=== PATIENT | female | born 1970 | race Caucasian/White ===

== ENCOUNTER 2019-11-06 04:29 | Emergency (ER) | payer OTHER ==
[~2019-11-06] VITALS: Ht 170.2 cm; Wt 102.5 kg
[2019-11-06 05:20] VITALS: BP 124/85
== END 2019-11-06 05:22 | disposition home or self-care (01) ==
LOC: ER 04:30
DX: Z00.00 Encounter for general adult medical examination without abnormal findings (principal); Z72.89 Other problems related to lifestyle
CPT/HCPCS: 99281

== ENCOUNTER 2021-11-06 15:14 | Inpatient (IN) | payer MEDICAID ==
[~2021-11-06] VITALS: Ht 170.2 cm; Wt 79.5 kg
[2021-11-06 16:38] LABS: BASOPHILS # (AUTO) 0.1 X10'3 (0-0.2); BASOPHILS % (AUTO) 0.7 % (0-1); EOSINOPHILS % (AUTO) 0.1 % (0-6); HEMATOCRIT 45.3 % (35.0-45.0); HEMOGLOBIN 15.8 g/dl (12.0-16.0); LYMPHOCYTES % (AUTO) 6.8 % (21-51); MEAN CORPUSCULAR HEMOGLOBIN 30.9 PG (27.0-31.0); MEAN CORPUSCULAR HGB CONC 34.9 g/dL (33.0-36.5); MEAN CORPUSCULAR VOLUME 88.5 FL (78-98); MEAN PLATELET VOLUME 8.9 FL (7.4-10.4); MONOCYTES # (AUTO) 0.9 X10'3 (0-0.9); MONOCYTES % (AUTO) 6.4 % (2-12); NEUTROPHILS # (AUTO) 12.2 X10'3 (1.8-7.7); PLATELET COUNT 464 X10'3 (140-440); RED BLOOD COUNT 5.12 X10'6 (4.20-5.60); RED CELL DISTRIBUTION WIDTH 13.8 % (11.5-14.5); WHITE BLOOD COUNT 14.1 X10'3 (4.5-11.0)
[2021-11-06 16:45] LABS: ALANINE AMINOTRANSFERASE 75 U/L (12-78); ALBUMIN 2.1 G/DL (3.4-5.0); ALBUMIN/GLOBULIN RATIO 0.3 (1.1-1.5); ALKALINE PHOSPHATASE 145 IU/L (46-116); ANION GAP 12 (8-16); ASPARTATE AMINO TRANSFERASE 38 U/L (10-37); BILIRUBIN,TOTAL 0.9 MG/DL (0.1-1.0); BLOOD UREA NITROGEN 12 MG/DL (7-18); BUN/CREATININE RATIO 13.3 (6.6-38.0); CALCIUM 8.9 MG/DL (8.5-10.1); CHLORIDE 98 MMOL/L (99-107); GLUCOSE 158 MG/DL (70-104); POTASSIUM 3.5 MMOL/L (3.5-5.1); SODIUM 135 MMOL/L (135-145); TOTAL CARBON DIOXIDE 25.2 MMOL/L (24-32); TOTAL PROTEIN 8.6 G/DL (6.4-8.2); eGFR 65 ML/MIN
[2021-11-06] MEDS ORDERED: morphine 4 MG/ML inj SYRINge IV ONE ×2 (16:50→18:15)
[2021-11-06] MEDS ORDERED: normal saline 1000ML IV soln IVB ONE (16:50)
[2021-11-06] MEDS ORDERED: ondansetron/PF 4mg/2ml inj IV ONE (16:50)
[2021-11-06] MEDS ORDERED: cefTRIAXone 1g/NS 100ml IVPB 100 ML IV ONE (16:50)
[2021-11-06] MEDS ORDERED: vancomycin/NS 1 GM ADD-VANTAGE 250 ML X 1 DOSE IV ONE ×2 (16:55→18:00)
[2021-11-06] MEDS ORDERED: DOXYCYCLINE 100 MG in NORMAL SALINE 100ml IV.SOLN IV ONE (17:15)
[2021-11-06] MEDS: fluconazole 100mg tablet PO SCH (17:45)
[2021-11-06] MEDS ORDERED: acetaminophen 325mg tablet PO PRN (17:45)
[2021-11-06] MEDS ORDERED: HYDROcodone/acetaminophen 5mg/325mg tablet PO PRN (17:45)
[2021-11-06] MEDS ORDERED: magnesium Cl slow-release 64mg tablet PO PRN (17:45)
[2021-11-06] MEDS ORDERED: magnesium 2GM in 50ml NS 50 ML IV PRN (17:45)
[2021-11-06] MEDS ORDERED: potassium CL 10mEq/100ml bag 100 ML IV PRN (17:45)
[2021-11-06] MEDS ORDERED: ondansetron/PF 4mg/2ml inj IV PRN (17:45)
[2021-11-06] MEDS ORDERED: magnesium 4gm in 100ml NS 100 ML IV PRN (17:45)
[2021-11-06] MEDS: potassium Cl 20mEq in NS 1,000 ML IV SCH (17:45)
[2021-11-06] MEDS ORDERED: potassium Cl 20 mEq SR tablet PO PRN ×2 (17:45)
[2021-11-06] MEDS ORDERED: mag hydrox/Alum hydrox/simeth 30ml oral suspension PO PRN (17:45)
[2021-11-06] MEDS ORDERED: morphine 2 MG/ML inj. syringe IV PRN (17:45)
[2021-11-06 18:33] LABS: MAGNESIUM 1.3 MG/DL (1.5-2.4); POTASSIUM 3.1 MMOL/L (3.5-5.1)
[2021-11-06] MEDS ORDERED: IBUP-1986 PO (19:07)
[2021-11-06] MEDS ORDERED: ALBU17AE26 IH (19:07)
--- NOTE | 2021-11-06 19:30 | NUR ---
ATTEMPTED WOUND CARE TO BILAT BREAST AND ABD WOUNDS, PT IN PAIN 10 OUT OF 10. SALINE SOAKED GAUZE PLACED ON OPEN AREAS, MAGGOTS SEEN CRAWLING UNDER PT RIGHT BREAST.
[2021-11-06] MEDS: docusate sod 100mg capsule PO SCH (20:00)
[2021-11-06] MEDS: HYDROcodone/acetaminophen 10/325mg tab PO PRN (21:23)
[2021-11-06] MEDS: diphenhydrAMINE 25mg capsule PO PRN (21:23)
[2021-11-06] MEDS: K and/or MAG REPLACEMENT MC SCH (21:32)
[2021-11-06] MEDS: morphine 2 MG/ML inj. syringe IV PRN (22:57)
--- NOTE | 2021-11-06 22:59 | NUR ---
PT WAS SHOWERED IN THE DECON ROOM, SOME MAGGOTS REMOVED
--- NOTE | 2021-11-06 23:04 | NUR ---
pt refuses cath UA, states will provide urine when she gets upstairs
[2021-11-06 23:30] VITALS: BP 114/84
--- NOTE | 2021-11-06 23:30 | NUR ---
RECEIVED PT FROM ER VIA [facility] FOLLOWING VERBAL REPORT FROM ROBSON.
[2021-11-07] MEDS: potassium Cl 20mEq in NS 1,000 ML IV SCH ×3 (00:56→22:55)
[2021-11-07 01:07] LABS: URINE AMPHETAMINE SCREEN POSITIVE (Neg); URINE BARBITUATE SCREEN NEGATIVE (Neg); URINE BENZODIAZEPINES SCREEN NEGATIVE (Neg); URINE CANNABINOID SCREEN NEGATIVE (Neg); URINE COCAINE SCREEN NEGATIVE (Neg); URINE METHADONE SCREEN NEGATIVE (Neg); URINE OPIATE SCREEN POSITIVE (Neg); URINE PHENCYCLIDINE SCREEN NEGATIVE (Neg)
[2021-11-07] MEDS: HYDROcodone/acetaminophen 10/325mg tab PO PRN ×4 (01:23→21:36)
[2021-11-07 01:37] LABS: CLARITY,URINE CLEAR (Clear); GLUCOSE, URINE NEGATIVE (Neg); KETONES,URINE NEGATIVE (Neg); LEUKOCYTE ESTERASE ,URINE NEGATIVE (Neg); NITRITES, URINE NEGATIVE (Neg); OCCULT BLOOD,URINE NEGATIVE (Neg); PH,URINE 6.5 (4.8-8.0); PROTEIN,URINE NEGATIVE (Neg); UROBILINOGEN,URINE >=8.0 E.U/dL (0.2-1.0)
[2021-11-07 01:54] LABS: COLOR,URINE AMBER (Yellow); UA COLLECTION TYPE VOIDED
[2021-11-07] MEDS ORDERED: VANCOMYCIN LEVEL IV ONE (03:30)
[2021-11-07] MEDS: vancomycin/NS 1 GM ADD-VANTAGE 250 ML IV SCH ×2 (03:53→16:24)
[2021-11-07 06:00] VITALS: BP 103/65
--- NOTE | 2021-11-07 06:37 | NUR ---
Problems reprioritized. Patient report given, questions answered & plan of care reviewed with MELISSA.
--- NOTE | 2021-11-07 06:45 | NUR ---
Patient in room ORTHO 4016. I have received report from SARAH NICOLE and had the opportunity to ask questions and assume patient care.
[2021-11-07 07:00] LABS: BASOPHILS # (AUTO) 0.1 X10'3 (0-0.2); BASOPHILS % (AUTO) 0.6 % (0-1); EOSINOPHILS # (AUTO) 0.1 X10'3 (0-0.9); EOSINOPHILS % (AUTO) 1.4 % (0-6); HEMATOCRIT 36.7 % (35.0-45.0); HEMOGLOBIN 12.3 g/dl (12.0-16.0); LYMPHOCYTES # (AUTO) 1.5 X10'3 (1.1-4.8); LYMPHOCYTES % (AUTO) 16.6 % (21-51); MEAN CORPUSCULAR HEMOGLOBIN 29.7 PG (27.0-31.0); MEAN CORPUSCULAR HGB CONC 33.4 g/dL (33.0-36.5); MEAN CORPUSCULAR VOLUME 88.9 FL (78-98); MEAN PLATELET VOLUME 8.6 FL (7.4-10.4); MONOCYTES % (AUTO) 11.3 % (2-12); NEUTROPHILS # (AUTO) 6.2 X10'3 (1.8-7.7); NEUTROPHILS % (AUTO) 70.1 % (42-75); PLATELET COUNT 309 X10'3 (140-440); RED BLOOD COUNT 4.13 X10'6 (4.20-5.60); RED CELL DISTRIBUTION WIDTH 13.9 % (11.5-14.5); WHITE BLOOD COUNT 8.9 X10'3 (4.5-11.0)
[2021-11-07 07:32] LABS: ALANINE AMINOTRANSFERASE 51 U/L (12-78); ALBUMIN 1.4 G/DL (3.4-5.0); ALBUMIN/GLOBULIN RATIO 0.3 (1.1-1.5); ALKALINE PHOSPHATASE 98 IU/L (46-116); ANION GAP 7 (8-16); ASPARTATE AMINO TRANSFERASE 29 U/L (10-37); BILIRUBIN,TOTAL 0.4 MG/DL (0.1-1.0); BLOOD UREA NITROGEN 11 MG/DL (7-18); BUN/CREATININE RATIO 16.2 (6.6-38.0); CALCIUM 7.6 MG/DL (8.5-10.1); CHLORIDE 109 MMOL/L (99-107); CREATININE 0.68 MG/DL (0.40-0.90); GLUCOSE 110 MG/DL (70-104); MAGNESIUM 1.8 MG/DL (1.5-2.4); POTASSIUM 3.9 MMOL/L (3.5-5.1); SODIUM 141 MMOL/L (135-145); TOTAL CARBON DIOXIDE 24.9 MMOL/L (24-32); TOTAL PROTEIN 5.9 G/DL (6.4-8.2); eGFR > 90 ML/MIN
[2021-11-07] MEDS ORDERED: doxycycline inj 100 MG in normal saline 100ml IV soln 100 ML IV SCH (08:00)
[2021-11-07] MEDS: docusate sod 100mg capsule PO SCH ×2 (08:00→21:36)
[2021-11-07] MEDS: K and/or MAG REPLACEMENT MC SCH ×2 (08:00→20:00)
[2021-11-07 10:00] VITALS: BP 145/82
[2021-11-07] MEDS ORDERED: pneumococcal 23-VAL P-sac vacc 25 mcg/0.5ml vial IMVAC ONE (10:00)
[2021-11-07] MEDS: fluconazole 100mg tablet PO SCH (10:07)
[2021-11-07] MEDS: enoxaparin 40mg/0.4ml syringe SUBCUT SCH (10:09)
[2021-11-07] MEDS: DOXYCYCLINE 100MG CAPSULE PO SCH ×2 (11:39→19:04)
--- NOTE | 2021-11-07 11:56 | NUR ---
Met with patient in regards to substance use and to see if patient wanted resources for treatment options. Patient would like to go to an inpatient rehab. I gave patient [facility] number to call and start process. I will follow up with patient.
[2021-11-07 14:00] VITALS: BP 121/82
--- NOTE | 2021-11-07 18:20 | NUR ---
Problems reprioritized. Patient report given, questions answered & plan of care reviewed with SARAH NICOLE.
--- NOTE | 2021-11-07 18:30 | NUR ---
Patient in room [facility]THO 4016. I have received report from MELISSA and had the opportunity to ask questions and assume patient care.
[2021-11-07 19:00] VITALS: BP 136/84
[2021-11-07] MEDS: morphine 2 MG/ML inj. syringe IV PRN ×2 (19:05→23:23)
[2021-11-07] MEDS: magnesium hydroxide 30ml (MOM) UD suspension PO PRN (21:36)
[2021-11-07 22:00] VITALS: BP 128/74
[2021-11-08 02:00] VITALS: BP 105/70
[2021-11-08] MEDS ORDERED: VANCOMYCIN LEVEL IV ONE (03:30)
[2021-11-08] MEDS: HYDROcodone/acetaminophen 10/325mg tab PO PRN ×3 (03:38→17:25)
[2021-11-08] MEDS: vancomycin/NS 1 GM ADD-VANTAGE 250 ML IV SCH (03:38)
[2021-11-08 03:48] LABS: EOSINOPHILS # (AUTO) 0.1 X10'3 (0-0.9); LYMPHOCYTES # (AUTO) 1.8 X10'3 (1.1-4.8); MONOCYTES # (AUTO) 0.6 X10'3 (0-0.9); RED CELL DISTRIBUTION WIDTH 14.1 % (11.5-14.5)
[2021-11-08 03:50] LABS: BASOPHILS # (AUTO) 0.1 X10'3 (0-0.2); BASOPHILS % (AUTO) 1.1 % (0-1); EOSINOPHILS % (AUTO) 1.5 % (0-6); HEMATOCRIT 39.1 % (35.0-45.0); LYMPHOCYTES % (AUTO) 26.4 % (21-51); MEAN CORPUSCULAR HEMOGLOBIN 30.2 PG (27.0-31.0); MEAN CORPUSCULAR HGB CONC 33.3 g/dL (33.0-36.5); MEAN CORPUSCULAR VOLUME 90.6 FL (78-98); MEAN PLATELET VOLUME 8.4 FL (7.4-10.4); MONOCYTES % (AUTO) 8.4 % (2-12); NEUTROPHILS # (AUTO) 4.3 X10'3 (1.8-7.7); NEUTROPHILS % (AUTO) 62.6 % (42-75); PLATELET COUNT 329 X10'3 (140-440); RED BLOOD COUNT 4.32 X10'6 (4.20-5.60); WHITE BLOOD COUNT 6.8 X10'3 (4.5-11.0)
[2021-11-08 03:57] LABS: ALANINE AMINOTRANSFERASE 47 U/L (12-78); ALBUMIN 1.4 G/DL (3.4-5.0); ALBUMIN/GLOBULIN RATIO 0.3 (1.1-1.5); ALKALINE PHOSPHATASE 84 IU/L (46-116); ANION GAP 5 (8-16); ASPARTATE AMINO TRANSFERASE 27 U/L (10-37); BILIRUBIN,TOTAL 0.2 MG/DL (0.1-1.0); BLOOD UREA NITROGEN 9 MG/DL (7-18); BUN/CREATININE RATIO 11.7 (6.6-38.0); CALCIUM 7.7 MG/DL (8.5-10.1); CHLORIDE 110 MMOL/L (99-107); CREATININE 0.77 MG/DL (0.40-0.90); GLUCOSE 124 MG/DL (70-104); MAGNESIUM 1.9 MG/DL (1.5-2.4); POTASSIUM 4.6 MMOL/L (3.5-5.1); SODIUM 144 MMOL/L (135-145); TOTAL CARBON DIOXIDE 29.3 MMOL/L (24-32); TOTAL PROTEIN 6.2 G/DL (6.4-8.2); VANCOMYCIN,TROUGH 6.5 UG/ML (6.0-14.0); eGFR 78 ML/MIN
[2021-11-08 06:30] VITALS: BP 129/60
[2021-11-08] MEDS: K and/or MAG REPLACEMENT MC SCH ×2 (08:00→20:00)
[2021-11-08] MEDS: docusate sod 100mg capsule PO SCH ×2 (09:24→21:53)
[2021-11-08] MEDS: DOXYCYCLINE 100MG CAPSULE PO SCH (09:24)
[2021-11-08] MEDS: fluconazole 100mg tablet PO SCH (09:25)
[2021-11-08] MEDS: enoxaparin 40mg/0.4ml syringe SUBCUT SCH (09:25)
[2021-11-08 10:00] VITALS: BP 135/85
[2021-11-08] MEDS ORDERED: pneumococcal 23-VAL P-sac vacc 25 mcg/0.5ml vial IMVAC ONE (10:00)
[2021-11-08] MEDS: potassium Cl 20mEq in NS 1,000 ML IV SCH ×3 (10:58→22:27)
--- NOTE | 2021-11-08 13:12 | NUR ---
Initial: Pt admit for sepsis secondary to cellulitis of abdominal wall and bilat breast with maggots, wound care following. Pt on a regular diet and eating well, documented with 100% PO intake throughout LOS meeting estimated nutrient needs. LBM 11/03 though no GI symptoms per EMR. Pt receiving routine bowel care and received first dose of PRN bowel care 11/07. D/w dietary to send prunes and prune juice with next meal to assist with bowel regularity. Will continue to follow and monitor need for additional nutrition intervention. Recommendations: 1) Continue regular diet 2) Monitor need for additional protein 3) Routine bowel care; utilize PRN bowel care 4) Scaled weight this admit; subsequent weekly scaled weights Addendum: 11/08/21 at [address] Amended: Links added.
[2021-11-08] MEDS: morphine 2 MG/ML inj. syringe IV PRN (13:31)
--- NOTE | 2021-11-08 15:36 | NUR ---
Student documentation: I have reviewed and agree with all interventions, assessments performed and documented by JOVANY Kim Brakeshoe Repairer. Addendum: 11/08/21 at 1537 by Amrita Lara SS Amended: Links added.
[2021-11-08] MEDS: VANCOmycin 1250MG/NS 250ml Bag 250 ML IV SCH (16:38)
[2021-11-08 18:00] VITALS: BP 146/93
--- NOTE | 2021-11-08 18:20 | NUR ---
Patient in room ORTHO 4016. I have received report from Vanessa SMITH and had the opportunity to ask questions and assume patient care.
--- NOTE | 2021-11-08 18:33 | NUR ---
Problems reprioritized. Patient report given, questions answered & plan of care reviewed with ADRIAN SMITH.
[2021-11-08 22:00] VITALS: BP 139/85
--- NOTE | 2021-11-08 23:06 | NUR ---
I have reviewed nursing students assessment and agree with all findings.
[2021-11-09] VITALS (7 sets, daily range): BP systolic 131–154; BP diastolic 77–88
--- NOTE | 2021-11-09 02:38 | NUR ---
Student documentation: I have reviewed interventions, assessments performed and documented by Cheo HINES [facility].
[2021-11-09] MEDS: VANCOmycin 1250MG/NS 250ml Bag 250 ML IV SCH ×2 (04:07→17:43)
[2021-11-09] MEDS: HYDROcodone/acetaminophen 10/325mg tab PO PRN ×4 (04:08→21:54)
[2021-11-09] MEDS: LORazepam 0.5 MG tablet PO PRN (04:08)
[2021-11-09 06:39] LABS: BASOPHILS # (AUTO) 0.1 X10'3 (0-0.2); BASOPHILS % (AUTO) 1.2 % (0-1); EOSINOPHILS # (AUTO) 0.1 X10'3 (0-0.9); EOSINOPHILS % (AUTO) 1.3 % (0-6); HEMATOCRIT 38.5 % (35.0-45.0); LYMPHOCYTES # (AUTO) 1.6 X10'3 (1.1-4.8); LYMPHOCYTES % (AUTO) 21.8 % (21-51); MEAN CORPUSCULAR HEMOGLOBIN 30.3 PG (27.0-31.0); MEAN CORPUSCULAR HGB CONC 33.8 g/dL (33.0-36.5); MEAN CORPUSCULAR VOLUME 89.7 FL (78-98); MEAN PLATELET VOLUME 8.2 FL (7.4-10.4); MONOCYTES # (AUTO) 0.5 X10'3 (0-0.9); MONOCYTES % (AUTO) 6.3 % (2-12); NEUTROPHILS # (AUTO) 5.1 X10'3 (1.8-7.7); NEUTROPHILS % (AUTO) 69.4 % (42-75); PLATELET COUNT 349 X10'3 (140-440); RED CELL DISTRIBUTION WIDTH 13.9 % (11.5-14.5); WHITE BLOOD COUNT 7.4 X10'3 (4.5-11.0)
--- NOTE | 2021-11-09 06:45 | NUR ---
Problems reprioritized. Patient report given, questions answered & plan of care reviewed with Vanessa SMITH.
[2021-11-09 07:09] LABS: ALANINE AMINOTRANSFERASE 40 U/L (12-78); ALBUMIN 1.4 G/DL (3.4-5.0); ALBUMIN/GLOBULIN RATIO 0.3 (1.1-1.5); ALKALINE PHOSPHATASE 87 IU/L (46-116); ANION GAP 9 (8-16); ASPARTATE AMINO TRANSFERASE 26 U/L (10-37); BILIRUBIN,TOTAL 0.3 MG/DL (0.1-1.0); BLOOD UREA NITROGEN 7 MG/DL (7-18); BUN/CREATININE RATIO 10.4 (6.6-38.0); CALCIUM 8.2 MG/DL (8.5-10.1); CHLORIDE 106 MMOL/L (99-107); CREATININE 0.67 MG/DL (0.40-0.90); GLUCOSE 139 MG/DL (70-104); MAGNESIUM 1.8 MG/DL (1.5-2.4); POTASSIUM 4.1 MMOL/L (3.5-5.1); SODIUM 140 MMOL/L (135-145); TOTAL CARBON DIOXIDE 25.4 MMOL/L (24-32); TOTAL PROTEIN 6.4 G/DL (6.4-8.2); eGFR > 90 ML/MIN
[2021-11-09] MEDS: K and/or MAG REPLACEMENT MC SCH ×2 (08:00→20:00)
[2021-11-09] MEDS: docusate sod 100mg capsule PO SCH ×2 (09:21→19:26)
[2021-11-09] MEDS: fluconazole 100mg tablet PO SCH (09:22)
[2021-11-09] MEDS: enoxaparin 40mg/0.4ml syringe SUBCUT SCH (09:25)
[2021-11-09] MEDS: morphine 2 MG/ML inj. syringe IV PRN (13:06)
[2021-11-09] MEDS: potassium Cl 20mEq in NS 1,000 ML IV SCH (17:43)
--- NOTE | 2021-11-09 18:28 | NUR ---
Problems reprioritized. Patient report given, questions answered & plan of care reviewed with jo-ann white.
[2021-11-10] VITALS (7 sets, daily range): BP systolic 109–151; BP diastolic 74–101
[2021-11-10] MEDS ORDERED: VANCOMYCIN LEVEL IV ONE (03:30)
[2021-11-10 03:40] LABS: BASOPHILS # (AUTO) 0.1 X10'3 (0-0.2); BASOPHILS % (AUTO) 1.4 % (0-1); EOSINOPHILS # (AUTO) 0.1 X10'3 (0-0.9); EOSINOPHILS % (AUTO) 1.7 % (0-6); HEMATOCRIT 39.2 % (35.0-45.0); HEMOGLOBIN 13.4 g/dl (12.0-16.0); LYMPHOCYTES # (AUTO) 2.3 X10'3 (1.1-4.8); LYMPHOCYTES % (AUTO) 34.8 % (21-51); MEAN CORPUSCULAR HEMOGLOBIN 30.2 PG (27.0-31.0); MEAN CORPUSCULAR HGB CONC 34.1 g/dL (33.0-36.5); MEAN CORPUSCULAR VOLUME 88.4 FL (78-98); MEAN PLATELET VOLUME 7.9 FL (7.4-10.4); MONOCYTES # (AUTO) 0.6 X10'3 (0-0.9); NEUTROPHILS # (AUTO) 3.5 X10'3 (1.8-7.7); NEUTROPHILS % (AUTO) 53.1 % (42-75); PLATELET COUNT 378 X10'3 (140-440); RED BLOOD COUNT 4.44 X10'6 (4.20-5.60); RED CELL DISTRIBUTION WIDTH 13.8 % (11.5-14.5); WHITE BLOOD COUNT 6.6 X10'3 (4.5-11.0)
[2021-11-10] MEDS: HYDROcodone/acetaminophen 10/325mg tab PO PRN ×4 (03:40→21:47)
[2021-11-10] MEDS: VANCOmycin 1250MG/NS 250ml Bag 250 ML IV SCH ×2 (03:40→16:53)
[2021-11-10 03:52] LABS: ALANINE AMINOTRANSFERASE 44 U/L (12-78); ALBUMIN 1.6 G/DL (3.4-5.0); ALBUMIN/GLOBULIN RATIO 0.3 (1.1-1.5); ALKALINE PHOSPHATASE 101 IU/L (46-116); ANION GAP 4 (8-16); ASPARTATE AMINO TRANSFERASE 27 U/L (10-37); BILIRUBIN,TOTAL 0.2 MG/DL (0.1-1.0); BLOOD UREA NITROGEN 7 MG/DL (7-18); BUN/CREATININE RATIO 9.9 (6.6-38.0); CHLORIDE 106 MMOL/L (99-107); CREATININE 0.71 MG/DL (0.40-0.90); GLUCOSE 141 MG/DL (70-104); MAGNESIUM 1.8 MG/DL (1.5-2.4); POTASSIUM 4.3 MMOL/L (3.5-5.1); SODIUM 139 MMOL/L (135-145); TOTAL PROTEIN 6.6 G/DL (6.4-8.2); VANCOMYCIN,TROUGH 14.3 UG/ML (6.0-14.0); eGFR 86 ML/MIN
[2021-11-10] MEDS: potassium Cl 20mEq in NS 1,000 ML IV SCH ×3 (04:47→21:50)
--- NOTE | 2021-11-10 06:19 | NUR ---
Problems reprioritized. Patient report given, questions answered & plan of care reviewed with SARAH NEWELL.
--- NOTE | 2021-11-10 06:48 | NUR ---
Patient in room [facility]THO 4016. I have received report from SARAH Metzger and had the opportunity to ask questions and assume patient care.
[2021-11-10] MEDS: K and/or MAG REPLACEMENT MC SCH ×2 (08:00→19:28)
[2021-11-10] MEDS: fluconazole 100mg tablet PO SCH (09:00)
[2021-11-10] MEDS: docusate sod 100mg capsule PO SCH ×2 (09:00→19:30)
[2021-11-10] MEDS: enoxaparin 40mg/0.4ml syringe SUBCUT SCH (09:01)
--- NOTE | 2021-11-10 10:15 | NUR ---
Spoke with wound care nurse. She will be doing the wound care and taking picture of the wounds today.
[2021-11-10] MEDS: morphine 2 MG/ML inj. syringe IV PRN (12:54)
--- NOTE | 2021-11-10 15:54 | NUR ---
Arrived on unit to change dressing and take photos of wounds for MD to review in chart. Pt tolerated dressing change well and assisted in removal of xeroform w/ gloved hands. The wound edges to the right breast and abd are with noted melissa red border and the wound base is noted to be boggy and w/ necrotic tissue. The left breast wound also w/ boggy wound base and large slough. Redressed per orders, she tolerated well w/ pre medication. Report to Dr Devlin and Dr Saravia, also call to Dr Torres to evaluate possible etiologies of wounds. Report to primary nurse. Addendum: 11/10/21 at 1602 by Georgina Sinha RN Amended: Links added.
--- NOTE | 2021-11-10 18:30 | NUR ---
Patient in room ORTHO 4016. I have received report from SARAH Coleman and had the opportunity to ask questions and assume patient care.
--- NOTE | 2021-11-10 19:09 | NUR ---
Problems reprioritized. Patient report given, questions answered & plan of care reviewed with SARAH Valenzuela.
[2021-11-11] MEDS: VANCOmycin 1250MG/NS 250ml Bag 250 ML IV SCH (03:50)
[2021-11-11] MEDS: morphine 2 MG/ML inj. syringe IV PRN ×2 (03:51→15:08)
[2021-11-11 06:00] VITALS: BP 141/88
--- NOTE | 2021-11-11 06:34 | NUR ---
Patient in room ORTHO 4016. I have received report from SARAH Valenzuela and had the opportunity to ask questions and assume patient care.
--- NOTE | 2021-11-11 06:56 | NUR ---
Problems reprioritized. Patient report given, questions answered & plan of care reviewed with SARAH Coleman.
[2021-11-11 07:23] LABS: BASOPHILS # (AUTO) 0.1 X10'3 (0-0.2); BASOPHILS % (AUTO) 1.3 % (0-1); EOSINOPHILS # (AUTO) 0.1 X10'3 (0-0.9); EOSINOPHILS % (AUTO) 1.5 % (0-6); HEMATOCRIT 45.8 % (35.0-45.0); HEMOGLOBIN 15.4 g/dl (12.0-16.0); LYMPHOCYTES # (AUTO) 2.3 X10'3 (1.1-4.8); LYMPHOCYTES % (AUTO) 29.2 % (21-51); MEAN CORPUSCULAR HEMOGLOBIN 30.3 PG (27.0-31.0); MEAN CORPUSCULAR HGB CONC 33.5 g/dL (33.0-36.5); MEAN CORPUSCULAR VOLUME 90.5 FL (78-98); MEAN PLATELET VOLUME 7.9 FL (7.4-10.4); MONOCYTES # (AUTO) 0.4 X10'3 (0-0.9); MONOCYTES % (AUTO) 5.2 % (2-12); NEUTROPHILS % (AUTO) 62.8 % (42-75); PLATELET COUNT 473 X10'3 (140-440); RED BLOOD COUNT 5.06 X10'6 (4.20-5.60); RED CELL DISTRIBUTION WIDTH 14.1 % (11.5-14.5); WHITE BLOOD COUNT 7.9 X10'3 (4.5-11.0)
--- NOTE | 2021-11-11 07:28 | NUR ---
Notified DR. Devlin that wound care nurse Georgina is concerned that the patient may have pyoderma gangrenosum. Per Dr. Devlin cancel the surgery scheduled for 0900 today.
[2021-11-11 07:57] LABS: ALANINE AMINOTRANSFERASE 49 U/L (12-78); ALBUMIN 2.1 G/DL (3.4-5.0); ALBUMIN/GLOBULIN RATIO 0.3 (1.1-1.5); ALKALINE PHOSPHATASE 117 IU/L (46-116); ANION GAP 4 (8-16); ASPARTATE AMINO TRANSFERASE 29 U/L (10-37); BILIRUBIN,TOTAL 0.3 MG/DL (0.1-1.0); BLOOD UREA NITROGEN 7 MG/DL (7-18); BUN/CREATININE RATIO 9.3 (6.6-38.0); CALCIUM 8.8 MG/DL (8.5-10.1); CHLORIDE 105 MMOL/L (99-107); CREATININE 0.75 MG/DL (0.40-0.90); GLUCOSE 94 MG/DL (70-104); SODIUM 140 MMOL/L (135-145); TOTAL PROTEIN 8.3 G/DL (6.4-8.2); eGFR 81 ML/MIN
[2021-11-11 08:00] VITALS: BP_SYST 114; BP_SYST 119; BP_SYST 127; BP_DIAS 73; BP_DIAS 85; BP_DIAS 87
[2021-11-11] MEDS: K and/or MAG REPLACEMENT MC SCH ×2 (08:00→20:00)
[2021-11-11] MEDS: potassium Cl 20mEq in NS 1,000 ML IV SCH ×3 (09:21→21:51)
[2021-11-11] MEDS: fluconazole 100mg tablet PO SCH (09:24)
[2021-11-11] MEDS: docusate sod 100mg capsule PO SCH ×2 (09:24→19:26)
[2021-11-11] MEDS: enoxaparin 40mg/0.4ml syringe SUBCUT SCH (09:25)
[2021-11-11 10:00] VITALS: BP 119/73
[2021-11-11] MEDS: HYDROcodone/acetaminophen 10/325mg tab PO PRN ×3 (10:20→23:29)
[2021-11-11 14:00] VITALS: BP 114/60
[2021-11-11] MEDS ORDERED: VANCOMYCIN IV SCH (16:00)
[2021-11-11] MEDS ORDERED: NORMAL SALINE IV SCH (16:00)
[2021-11-11 18:00] VITALS: BP 128/84
--- NOTE | 2021-11-11 18:42 | NUR ---
Problems reprioritized. Patient report given, questions answered & plan of care reviewed with SARAH Valenzuela.
--- NOTE | 2021-11-11 18:43 | NUR ---
Patient in room ORTHO 4016. I have received report from SARAH Coleman and had the opportunity to ask questions and assume patient care.
[2021-11-11] MEDS: LORazepam 0.5 MG tablet PO PRN (19:26)
--- NOTE | 2021-11-11 23:46 | NUR ---
pt refused to have vitals taken. also refused orthostatic vital signs.
[2021-11-12] VITALS (8 sets, daily range): BP systolic 114–136; BP diastolic 64–88
[2021-11-12] MEDS: morphine 2 MG/ML inj. syringe IV PRN ×2 (04:27→15:53)
--- NOTE | 2021-11-12 06:42 | NUR ---
Problems reprioritized. Patient report given, questions answered & plan of care reviewed with SARAH Coleman.
--- NOTE | 2021-11-12 06:54 | NUR ---
Patient in room ORTHO 4016. I have received report from SARAH Valenzuela and had the opportunity to ask questions and assume patient care.
[2021-11-12] MEDS: K and/or MAG REPLACEMENT MC SCH ×2 (08:00→20:00)
[2021-11-12] MEDS: HYDROcodone/acetaminophen 10/325mg tab PO PRN ×4 (09:55→22:45)
[2021-11-12] MEDS: docusate sod 100mg capsule PO SCH ×2 (09:56→20:14)
[2021-11-12] MEDS: fluconazole 100mg tablet PO SCH (09:57)
[2021-11-12] MEDS: enoxaparin 40mg/0.4ml syringe SUBCUT SCH (09:57)
[2021-11-12] MEDS: potassium Cl 20mEq in NS 1,000 ML IV SCH (13:53)
--- NOTE | 2021-11-12 18:52 | NUR ---
Problems reprioritized. Patient report given, questions answered & plan of care reviewed with SARAH Valenzuela.
[2021-11-13] MEDS: potassium Cl 20mEq in NS 1,000 ML IV SCH (02:00)
[2021-11-13] MEDS ORDERED: VANCOMYCIN LEVEL IV ONE (03:30)
[2021-11-13] MEDS: morphine 2 MG/ML inj. syringe IV PRN ×2 (04:15→15:34)
[2021-11-13] MEDS: HYDROcodone/acetaminophen 10/325mg tab PO PRN ×4 (05:53→20:48)
--- NOTE | 2021-11-13 06:43 | NUR ---
Problems reprioritized. Patient report given, questions answered & plan of care reviewed with SARAH Bustos.
--- NOTE | 2021-11-13 06:46 | NUR ---
Patient in room ORTHO 4016. I have received report from Bianca SMITH and had the opportunity to ask questions and assume patient care.
[2021-11-13 07:00] VITALS: BP 122/71
[2021-11-13] MEDS: fluconazole 100mg tablet PO SCH (07:57)
[2021-11-13] MEDS: docusate sod 100mg capsule PO SCH ×2 (07:57→19:43)
[2021-11-13] MEDS: enoxaparin 40mg/0.4ml syringe SUBCUT SCH (07:57)
[2021-11-13] MEDS: K and/or MAG REPLACEMENT MC SCH ×2 (08:00→19:42)
[2021-11-13 11:00] VITALS: BP 99/53
[2021-11-13 14:00] VITALS: BP 105/64
--- NOTE | 2021-11-13 16:43 | NUR ---
PIV replaced to SUBHASH 20G patients dressings changed to bilat breasts and abdomen. Pictures taken. Morphine given for pain prior to dressing change. will continue to monitor.
[2021-11-13] MEDS: magnesium hydroxide 30ml (MOM) UD suspension PO PRN (17:07)
--- NOTE | 2021-11-13 17:46 | NUR ---
Hall given for pain 03/25. MOM given for constipation. Patient has been pleasant and cooperative during day shift. Anxious at times. will continue to monitor.
[2021-11-13 18:00] VITALS: BP 109/67
--- NOTE | 2021-11-13 18:11 | NUR ---
Problems reprioritized. Patient report given, questions answered & plan of care reviewed with vasyl SMITH.
[2021-11-13 22:00] VITALS: BP 113/74
[2021-11-14] MEDS: HYDROcodone/acetaminophen 10/325mg tab PO PRN ×5 (01:19→21:22)
--- NOTE | 2021-11-14 04:00 | NUR ---
Complete wound care provided-6 xeroform used.
--- NOTE | 2021-11-14 04:00 | NUR ---
Scanner not working, manually admin iv abx.
[2021-11-14 06:00] VITALS: BP 110/57
--- NOTE | 2021-11-14 06:52 | NUR ---
Patient in room ORTHO 4016a. I have received report from Jennifer SMITH and had the opportunity to ask questions and assume patient care.
[2021-11-14 06:54] LABS: BASOPHILS # (AUTO) 0.1 X10'3 (0-0.2); BASOPHILS % (AUTO) 1.2 % (0-1); EOSINOPHILS # (AUTO) 0.2 X10'3 (0-0.9); EOSINOPHILS % (AUTO) 2.3 % (0-6); HEMATOCRIT 38.5 % (35.0-45.0); HEMOGLOBIN 12.6 g/dl (12.0-16.0); LYMPHOCYTES # (AUTO) 2.4 X10'3 (1.1-4.8); MEAN CORPUSCULAR HEMOGLOBIN 29.3 PG (27.0-31.0); MEAN CORPUSCULAR HGB CONC 32.9 g/dL (33.0-36.5); MEAN CORPUSCULAR VOLUME 89.1 FL (78-98); MEAN PLATELET VOLUME 7.8 FL (7.4-10.4); MONOCYTES # (AUTO) 0.7 X10'3 (0-0.9); MONOCYTES % (AUTO) 9.1 % (2-12); NEUTROPHILS # (AUTO) 3.9 X10'3 (1.8-7.7); NEUTROPHILS % (AUTO) 54.4 % (42-75); PLATELET COUNT 373 X10'3 (140-440); RED BLOOD COUNT 4.32 X10'6 (4.20-5.60); RED CELL DISTRIBUTION WIDTH 13.9 % (11.5-14.5); WHITE BLOOD COUNT 7.2 X10'3 (4.5-11.0)
[2021-11-14 07:29] LABS: ALBUMIN 1.8 G/DL (3.4-5.0); ANION GAP 7 (8-16); BLOOD UREA NITROGEN 9 MG/DL (7-18); BUN/CREATININE RATIO 12.5 (6.6-38.0); CALCIUM 8.2 MG/DL (8.5-10.1); CHLORIDE 106 MMOL/L (99-107); CREATININE 0.72 MG/DL (0.40-0.90); GLUCOSE 125 MG/DL (70-104); POTASSIUM 3.9 MMOL/L (3.5-5.1); SODIUM 140 MMOL/L (135-145); TOTAL CARBON DIOXIDE 27.5 MMOL/L (24-32); eGFR 85 ML/MIN
[2021-11-14] MEDS: K and/or MAG REPLACEMENT MC SCH ×2 (07:56→20:00)
[2021-11-14] MEDS: enoxaparin 40mg/0.4ml syringe SUBCUT SCH (08:00)
[2021-11-14] MEDS: docusate sod 100mg capsule PO SCH ×2 (08:00→20:04)
[2021-11-14] MEDS: fluconazole 100mg tablet PO SCH (08:01)
--- NOTE | 2021-11-14 09:42 | NUR ---
Reassessment: Pt PO mostly ~100% avg regular diet meeting estimated needs. LBM 5/ per EMR. No nutrition intervention at this time. Will continue to monitor. Recommendations: 1) Continue regular diet 2) Routine bowel care 3) Scaled weight this admit; subsequent weekly scaled weights Addendum: 11/14/21 at [address] Amended: Links added.
[2021-11-14 10:00] VITALS: BP 111/69
--- NOTE | 2021-11-14 14:05 | NUR ---
WOUND INFECTION EDUCATION PROVIDED BY WOUND CARE 1. Patient instructed to call their primary doctor, or go the ED immediately if any of the following symptoms occur: * Increased pain in wound * Increase in drainage from the wound * Redness in the skin surrounding the wound * Warmth in the skin surrounding the wound * Bleeding from the wound * Temperature of 101 or greater 2. If any of these occur while in the hospital tell a nurse immediately. PRESSURE ULCER EDUCATION: DEFINITION: A pressure ulcer is an area of skin that breaks down when you stay in one position too long. The constant pressure against the skin reduces the blood flow to that area and the affected tissue dies. CAUSES: "Being bedridden or in a wheelchair "Fragile skin "Having a chronic condition, such as diabetes or vascular disease "Inability to move certain parts of your body without assistance "Older age "Incontinence of urine or stool SYMPTOMS: "A reddened area that DOES NOT turn white when pressed on - this can be the beginning of a pressure ulcer "A blister, deep sore or a crater - these can be advanced pressure ulcers FIRST AID: "Relieve the pressure on this area "Keep the area clean and dry "Call your primary doctor if you see any of the above symptoms "DO NOT massage the area "DO NOT use a donut shaped or ring shaped pillow- these actually interfere with the blood flow and cause complications PREVENTION: "Check for pressure ulcers everyday "Change position at least every two hours to relieve pressure "Use items that help relieve pressure- pillows, sheepskin, foam padding, and powders. "Keep skin clean and dry "Eat healthy well balanced meals "Exercise daily IF YOU SEE ANY OF THESE SYMPTOMS WHILE IN THE HOSPITAL - TELL YOUR NURSE IMMEDIATELY. IF YOU SEE ANY OF THESE SYMPTOMS WHILE AT HOME OR HAVE ANY QUESTIONS OR CONCERNS ABOUT PRESSURE ULCERS - CALL YOUR PRIMARY DOCTOR IMMEDIATELY. Addendum: 11/14/21 at 1406 by Joselyn Pedraza LVN Amended: Links added.
[2021-11-14 18:00] VITALS: BP 118/66
--- NOTE | 2021-11-14 18:06 | NUR ---
Problems reprioritized. Patient report given, questions answered & plan of care reviewed with Siobhan SMITH.
--- NOTE | 2021-11-14 18:06 | NUR ---
Patient in room ORTHO 4016A. I have received report from SARAH West and had the opportunity to ask questions and assume patient care.
[2021-11-14] MEDS: clotrimazole topical cream 15gm tube TP SCH (20:04)
[2021-11-14 22:00] VITALS: BP 105/65
[2021-11-15] MEDS: HYDROcodone/acetaminophen 10/325mg tab PO PRN ×4 (03:57→17:28)
[2021-11-15 06:34] VITALS: BP 101/61
--- NOTE | 2021-11-15 06:45 | NUR ---
Problems reprioritized. Patient report given, questions answered & plan of care reviewed with SARAH West.
[2021-11-15] MEDS: K and/or MAG REPLACEMENT MC SCH ×2 (08:00→20:00)
[2021-11-15] MEDS: enoxaparin 40mg/0.4ml syringe SUBCUT SCH (08:30)
[2021-11-15] MEDS: docusate sod 100mg capsule PO SCH ×2 (08:30→20:00)
[2021-11-15] MEDS: clotrimazole topical cream 15gm tube TP SCH ×2 (08:31→20:23)
[2021-11-15 10:00] VITALS: BP 96/53
[2021-11-15] MEDS: LORazepam 0.5 MG tablet PO PRN (12:32)
[2021-11-15 13:28] LABS: BASOPHILS # (AUTO) 0.1 X10'3 (0-0.2); BASOPHILS % (AUTO) 1.8 % (0-1); EOSINOPHILS # (AUTO) 0.2 X10'3 (0-0.9); EOSINOPHILS % (AUTO) 2.3 % (0-6); HEMATOCRIT 42.4 % (35.0-45.0); LYMPHOCYTES # (AUTO) 2.4 X10'3 (1.1-4.8); LYMPHOCYTES % (AUTO) 33.3 % (21-51); MEAN CORPUSCULAR HEMOGLOBIN 29.5 PG (27.0-31.0); MEAN CORPUSCULAR VOLUME 89.3 FL (78-98); MEAN PLATELET VOLUME 7.7 FL (7.4-10.4); MONOCYTES # (AUTO) 0.5 X10'3 (0-0.9); MONOCYTES % (AUTO) 7.2 % (2-12); NEUTROPHILS % (AUTO) 55.4 % (42-75); PLATELET COUNT 416 X10'3 (140-440); RED BLOOD COUNT 4.74 X10'6 (4.20-5.60); RED CELL DISTRIBUTION WIDTH 14.6 % (11.5-14.5); WHITE BLOOD COUNT 7.2 X10'3 (4.5-11.0)
[2021-11-15 13:41] LABS: ALANINE AMINOTRANSFERASE 37 U/L (12-78); ALBUMIN/GLOBULIN RATIO 0.4 (1.1-1.5); ALKALINE PHOSPHATASE 94 IU/L (46-116); ANION GAP 4 (8-16); ASPARTATE AMINO TRANSFERASE 21 U/L (10-37); BILIRUBIN,TOTAL 0.3 MG/DL (0.1-1.0); BLOOD UREA NITROGEN 12 MG/DL (7-18); BUN/CREATININE RATIO 16.2 (6.6-38.0); CALCIUM 8.6 MG/DL (8.5-10.1); CHLORIDE 104 MMOL/L (99-107); CREATININE 0.74 MG/DL (0.40-0.90); GLUCOSE 121 MG/DL (70-104); POTASSIUM 4.2 MMOL/L (3.5-5.1); SODIUM 136 MMOL/L (135-145); TOTAL CARBON DIOXIDE 27.8 MMOL/L (24-32); TOTAL PROTEIN 7.3 G/DL (6.4-8.2); eGFR 82 ML/MIN
[2021-11-15 14:00] VITALS: BP 97/62
[2021-11-15 18:00] VITALS: BP 102/66
--- NOTE | 2021-11-15 18:25 | NUR ---
Problems reprioritized. Patient report given, questions answered & plan of care reviewed with SARHA Mccann.
[2021-11-15 22:00] VITALS: BP 120/69
[2021-11-16] MEDS: HYDROcodone/acetaminophen 10/325mg tab PO PRN ×4 (04:12→23:25)
--- NOTE | 2021-11-16 06:23 | NUR ---
Problems reprioritized. Patient report given, questions answered & plan of care reviewed with SARAH Rodarte.
[2021-11-16 06:51] VITALS: BP 101/57
[2021-11-16] MEDS: docusate sod 100mg capsule PO SCH ×2 (07:41→20:00)
[2021-11-16] MEDS: enoxaparin 40mg/0.4ml syringe SUBCUT SCH (07:45)
[2021-11-16] MEDS: K and/or MAG REPLACEMENT MC SCH ×2 (08:00→20:25)
[2021-11-16 10:05] VITALS: BP 104/62
[2021-11-16] MEDS: clotrimazole topical cream 15gm tube TP SCH ×2 (10:58→20:14)
--- NOTE | 2021-11-16 16:27 | NUR ---
Documentation reviewed by Clinical Broaching Machine Set Up Operator.
[2021-11-16 16:37] VITALS: BP 96/63
[2021-11-16 18:00] VITALS: BP 103/64
--- NOTE | 2021-11-16 18:22 | NUR ---
Patient in room ORTHO 4016A. I have received report from SARAH Rodarte and had the opportunity to ask questions and assume patient care.
--- NOTE | 2021-11-16 18:23 | NUR ---
Problems reprioritized. Patient report given, questions answered & plan of care reviewed with SARAH Mccann.
[2021-11-16 22:00] VITALS: BP 115/74
--- NOTE | 2021-11-17 06:06 | NUR ---
Problems reprioritized. Patient report given, questions answered & plan of care reviewed with SARAH Rodarte.
[2021-11-17 06:53] VITALS: BP 105/58
[2021-11-17] MEDS: docusate sod 100mg capsule PO SCH ×2 (07:40→19:08)
[2021-11-17] MEDS: enoxaparin 40mg/0.4ml syringe SUBCUT SCH (07:42)
[2021-11-17] MEDS: HYDROcodone/acetaminophen 10/325mg tab PO PRN ×2 (07:50→19:08)
[2021-11-17] MEDS: K and/or MAG REPLACEMENT MC SCH ×2 (08:00→19:12)
[2021-11-17 09:49] VITALS: BP 135/69
[2021-11-17] MEDS: LORazepam 0.5 MG tablet PO PRN (11:00)
[2021-11-17] MEDS: clotrimazole topical cream 15gm tube TP SCH ×2 (11:14→19:12)
--- NOTE | 2021-11-17 18:09 | NUR ---
Problems reprioritized. Patient report given, questions answered & plan of care reviewed with SARAH Conde.
--- NOTE | 2021-11-17 18:12 | NUR ---
Problems reprioritized. Patient report given, questions answered & plan of care reviewed with SARAH Warren. Addendum: 11/17/21 at 1814 by Aster Coughlin RN Problems reprioritized. Patient report given, questions answered & plan of care reviewed with SARAH Conde.
[2021-11-17 22:00] VITALS: BP 96/61
[2021-11-18] MEDS ORDERED: VANCOMYCIN LEVEL IV ONE (03:30)
[2021-11-18 03:54] LABS: BASOPHILS # (AUTO) 0.2 X10'3 (0-0.2); BASOPHILS % (AUTO) 2.3 % (0-1); EOSINOPHILS # (AUTO) 0.2 X10'3 (0-0.9); HEMOGLOBIN 14.4 g/dl (12.0-16.0); LYMPHOCYTES # (AUTO) 2.9 X10'3 (1.1-4.8); MONOCYTES # (AUTO) 0.6 X10'3 (0-0.9); RED CELL DISTRIBUTION WIDTH 14.8 % (11.5-14.5); WHITE BLOOD COUNT 6.9 X10'3 (4.5-11.0)
[2021-11-18 03:56] LABS: EOSINOPHILS % (AUTO) 2.5 % (0-6); HEMATOCRIT 43.4 % (35.0-45.0); LYMPHOCYTES % (AUTO) 41.9 % (21-51); MEAN CORPUSCULAR HGB CONC 33.1 g/dL (33.0-36.5); MEAN CORPUSCULAR VOLUME 90.7 FL (78-98); MONOCYTES % (AUTO) 8.5 % (2-12); NEUTROPHILS # (AUTO) 3.1 X10'3 (1.8-7.7); NEUTROPHILS % (AUTO) 44.8 % (42-75); PLATELET COUNT 404 X10'3 (140-440); RED BLOOD COUNT 4.79 X10'6 (4.20-5.60)
[2021-11-18 04:06] LABS: ALBUMIN 2.2 G/DL (3.4-5.0); ANION GAP 5 (8-16); BLOOD UREA NITROGEN 12 MG/DL (7-18); BUN/CREATININE RATIO 13.8 (6.6-38.0); CALCIUM 8.6 MG/DL (8.5-10.1); CHLORIDE 108 MMOL/L (99-107); CREATININE 0.87 MG/DL (0.40-0.90); GLUCOSE 104 MG/DL (70-104); SODIUM 142 MMOL/L (135-145); TOTAL CARBON DIOXIDE 28.8 MMOL/L (24-32); VANCOMYCIN,TROUGH 16.3 UG/ML (6.0-14.0); eGFR 68 ML/MIN
--- NOTE | 2021-11-18 06:29 | NUR ---
Patient in room ORTHO 4016. I have received report from SARAH Conde and had the opportunity to ask questions and assume patient care.
[2021-11-18 06:38] VITALS: BP 121/80
[2021-11-18] MEDS: enoxaparin 40mg/0.4ml syringe SUBCUT SCH (07:10)
[2021-11-18] MEDS: docusate sod 100mg capsule PO SCH ×2 (07:10→20:06)
[2021-11-18] MEDS: HYDROcodone/acetaminophen 10/325mg tab PO PRN ×4 (07:10→20:06)
[2021-11-18] MEDS: K and/or MAG REPLACEMENT MC SCH ×2 (08:00→20:00)
--- NOTE | 2021-11-18 10:23 | NUR ---
Patient not wanting dressing changes done at this time. Dressing is CDI. Will continue to monitor and change when patient allows.
[2021-11-18 11:08] VITALS: BP 104/66
--- NOTE | 2021-11-18 11:38 | NUR ---
PICC Laney SMITH was in to place SUBHASH extended PIV.
[2021-11-18] MEDS: clotrimazole topical cream 15gm tube TP SCH ×2 (11:50→20:00)
[2021-11-18 15:26] VITALS: BP 96/63
[2021-11-18 18:00] VITALS: BP 94/64
--- NOTE | 2021-11-18 18:13 | NUR ---
Problems reprioritized. Patient report given, questions answered & plan of care reviewed with SARAH Conde.
[2021-11-18 22:00] VITALS: BP_SYST 109; BP_SYST 94; BP_DIAS 64; BP_DIAS 70
[2021-11-19 05:00] VITALS: BP 112/69
--- NOTE | 2021-11-19 06:33 | NUR ---
Patient in room ORTHO 4016. I have received report from SARAH Conde and had the opportunity to ask questions and assume patient care.
[2021-11-19] MEDS: K and/or MAG REPLACEMENT MC SCH ×3 (08:00→19:03)
[2021-11-19] MEDS: HYDROcodone/acetaminophen 10/325mg tab PO PRN ×2 (09:08→19:12)
[2021-11-19] MEDS: docusate sod 100mg capsule PO SCH ×2 (09:08→19:12)
[2021-11-19] MEDS: enoxaparin 40mg/0.4ml syringe SUBCUT SCH (09:09)
[2021-11-19 10:00] VITALS: BP 111/70
[2021-11-19] MEDS: clotrimazole topical cream 15gm tube TP SCH ×2 (11:37→19:12)
[2021-11-19 14:00] VITALS: BP 110/61
[2021-11-19 18:00] VITALS: BP 104/70
--- NOTE | 2021-11-19 18:20 | NUR ---
Problems reprioritized. Patient report given, questions answered & plan of care reviewed with SARAH Conde.
[2021-11-19] MEDS ORDERED: magnesium 4gm in 100ml NS 100 ML IV PRN (18:30)
[2021-11-19] MEDS ORDERED: potassium CL 10mEq/100ml bag 100 ML IV PRN (18:30)
[2021-11-19] MEDS ORDERED: POTASSIUM BICARB 20meq eff tab 20 MEQ TABLET.EFF PO PRN ×2 (18:30)
[2021-11-19] MEDS ORDERED: magnesium 2GM in 50ml NS 50 ML IV PRN (18:30)
[2021-11-19] MEDS ORDERED: magnesium Cl slow-release 64mg tablet PO PRN (18:30)
[2021-11-19 22:00] VITALS: BP 103/66
[2021-11-20 05:00] VITALS: BP 100/60
[2021-11-20 05:42] LABS: MAGNESIUM 1.7 MG/DL (1.5-2.4)
[2021-11-20] MEDS: K and/or MAG REPLACEMENT MC SCH ×4 (06:58→19:29)
[2021-11-20] MEDS: docusate sod 100mg capsule PO SCH ×2 (08:41→19:34)
[2021-11-20] MEDS: HYDROcodone/acetaminophen 10/325mg tab PO PRN ×3 (08:41→19:34)
[2021-11-20] MEDS: enoxaparin 40mg/0.4ml syringe SUBCUT SCH (08:43)
[2021-11-20] MEDS: clotrimazole topical cream 15gm tube TP SCH ×2 (08:43→19:35)
--- NOTE | 2021-11-20 08:43 | NUR ---
Reassessment: Pt PO mostly ~100% avg regular diet meeting estimated needs. LBM 5/ receiving routine colace. No nutrition intervention at this time. Will continue to monitor. Recommendations: 1) Continue regular diet 2) Routine bowel care 3) Scaled weight this admit; subsequent weekly scaled weights Addendum: 11/20/21 at [address] Amended: Links added.
[2021-11-20 09:18] LABS: BASOPHILS % (AUTO) 0.3 % (0-1); EOSINOPHILS # (AUTO) 0.2 X10'3 (0-0.9); EOSINOPHILS % (AUTO) 2.9 % (0-6); HEMATOCRIT 42.5 % (35.0-45.0); HEMOGLOBIN 13.8 g/dl (12.0-16.0); LYMPHOCYTES # (AUTO) 2.7 X10'3 (1.1-4.8); LYMPHOCYTES % (AUTO) 36.3 % (21-51); MEAN CORPUSCULAR HEMOGLOBIN 29.3 PG (27.0-31.0); MEAN CORPUSCULAR HGB CONC 32.4 g/dL (33.0-36.5); MEAN CORPUSCULAR VOLUME 90.3 FL (78-98); MONOCYTES # (AUTO) 0.7 X10'3 (0-0.9); MONOCYTES % (AUTO) 9.4 % (2-12); NEUTROPHILS # (AUTO) 3.8 X10'3 (1.8-7.7); NEUTROPHILS % (AUTO) 51.1 % (42-75); PLATELET COUNT 392 X10'3 (140-440); RED BLOOD COUNT 4.71 X10'6 (4.20-5.60); RED CELL DISTRIBUTION WIDTH 15.3 % (11.5-14.5); WHITE BLOOD COUNT 7.4 X10'3 (4.5-11.0)
[2021-11-20 09:32] LABS: ALBUMIN 2.2 G/DL (3.4-5.0); ANION GAP 7 (8-16); BLOOD UREA NITROGEN 12 MG/DL (7-18); BUN/CREATININE RATIO 14.1 (6.6-38.0); CALCIUM 8.8 MG/DL (8.5-10.1); CHLORIDE 105 MMOL/L (99-107); CREATININE 0.85 MG/DL (0.40-0.90); GLUCOSE 120 MG/DL (70-104); SODIUM 141 MMOL/L (135-145); TOTAL CARBON DIOXIDE 28.7 MMOL/L (24-32); eGFR 70 ML/MIN
[2021-11-20 09:34] LABS: POTASSIUM 4.8 MMOL/L (3.5-5.1)
[2021-11-20 10:29] VITALS: BP 102/62
[2021-11-20 14:00] VITALS: BP 102/55
--- NOTE | 2021-11-20 14:00 | NUR ---
To Dr Helton regarding swelling of right hand/wrist: leonora Bejarano, [address], R 4016 Superficial acute occlusive thrombus surrounding extended IV site in cephalic vein in right bicep. cvir tech is working on the report to send us.
--- NOTE | 2021-11-20 14:57 | NUR ---
Per Dr Helton it is okay to use extended piv at this time since thrombus is superficial and no extra anticoagulation is needed at this time. If extended IV becomes or is occluded than it will need to be discontinued and a new iv placed. If it is working okay, leave it and okay to use and have Laney from [facility] assess it tomorrow.
--- NOTE | 2021-11-20 15:30 | NUR ---
Per Dr Helton, He changed his mind and decided to take out IV in R arm and put a new one in L arm due to thrombus.
--- NOTE | 2021-11-20 18:24 | NUR ---
Report given to Lupe SMITH, all questions answered. Pt eating in bed.
[2021-11-20 18:30] VITALS: BP 97/55
--- NOTE | 2021-11-20 18:40 | NUR ---
Patient in room ORTHO 4016. I have received report from SARAH Bejarano and had the opportunity to ask questions and assume patient care. Addendum: 11/20/21 at 1853 by Hawa Marino RN Amended: Links added.
[2021-11-20 23:24] VITALS: BP 97/49
[2021-11-21] MEDS: HYDROcodone/acetaminophen 10/325mg tab PO PRN ×4 (03:42→20:29)
--- NOTE | 2021-11-21 05:43 | NUR ---
refused labs Addendum: 11/21/21 at 0555 by Hawa Marino RN Amended: Links added.
[2021-11-21 06:00] VITALS: BP 97/55
--- NOTE | 2021-11-21 06:19 | NUR ---
Problems reprioritized. Patient report given, questions answered & plan of care reviewed with SARAH Jackson. Addendum: 11/21/21 at 0619 by Hawa Marino RN Amended: Links added.
[2021-11-21] MEDS: enoxaparin 40mg/0.4ml syringe SUBCUT SCH (07:50)
[2021-11-21] MEDS: docusate sod 100mg capsule PO SCH ×2 (07:51→20:33)
[2021-11-21] MEDS: magnesium hydroxide 30ml (MOM) UD suspension PO PRN (07:53)
[2021-11-21] MEDS: K and/or MAG REPLACEMENT MC SCH ×4 (08:00→20:00)
--- NOTE | 2021-11-21 08:14 | NUR ---
PAGER ID: [phone] MESSAGE: John [phone]: [place] [phone] Please call re: IV does patient need a PICC? refused AM labs New IV from yesterday hurts
[2021-11-21 08:56] LABS: WHITE BLOOD COUNT 6.9 X10'3 (4.5-11.0)
[2021-11-21 08:58] LABS: HEMATOCRIT 42.9 % (35.0-45.0); HEMOGLOBIN 14.1 g/dl (12.0-16.0); MEAN CORPUSCULAR HEMOGLOBIN 29.5 PG (27.0-31.0); MEAN CORPUSCULAR HGB CONC 32.9 g/dL (33.0-36.5); MEAN CORPUSCULAR VOLUME 89.8 FL (78-98); MEAN PLATELET VOLUME 8.6 FL (7.4-10.4); PLATELET COUNT 367 X10'3 (140-440); RED BLOOD COUNT 4.78 X10'6 (4.20-5.60); RED CELL DISTRIBUTION WIDTH 15.2 % (11.5-14.5)
[2021-11-21 09:31] LABS: PLATELET ESTIMATE NORMAL; TOTAL CELLS COUNTED 100
[2021-11-21 09:39] LABS: ALBUMIN 2.3 G/DL (3.4-5.0); ANION GAP 6 (8-16); BLOOD UREA NITROGEN 10 MG/DL (7-18); BUN/CREATININE RATIO 13.9 (6.6-38.0); CALCIUM 8.5 MG/DL (8.5-10.1); CHLORIDE 107 MMOL/L (99-107); CREATININE 0.72 MG/DL (0.40-0.90); GLUCOSE 144 MG/DL (70-104); MAGNESIUM 1.7 MG/DL (1.5-2.4); POTASSIUM 4.2 MMOL/L (3.5-5.1); SODIUM 139 MMOL/L (135-145); TOTAL CARBON DIOXIDE 25.9 MMOL/L (24-32); eGFR 85 ML/MIN
[2021-11-21 10:00] VITALS: BP 86/57
--- NOTE | 2021-11-21 10:25 | NUR ---
Sent request to kitchen for string cheese for patient.
[2021-11-21] MEDS: clotrimazole topical cream 15gm tube TP SCH ×2 (11:00→20:00)
[2021-11-21] MEDS: LORazepam 0.5 MG tablet PO PRN (11:10)
[2021-11-21 15:50] VITALS: BP 104/64
--- NOTE | 2021-11-21 16:50 | NUR ---
WOUND INFECTION EDUCATION PROVIDED BY WOUND CARE 1. Patient instructed to call their primary doctor, or go the ED immediately if any of the following symptoms occur: * Increased pain in wound * Increase in drainage from the wound * Redness in the skin surrounding the wound * Warmth in the skin surrounding the wound * Bleeding from the wound * Temperature of 101 or greater 2. If any of these occur while in the hospital tell a nurse immediately. Addendum: 11/21/21 at 1651 by Joselyn Pedraza LVN Amended: Links added.
--- NOTE | 2021-11-21 18:25 | NUR ---
Problems reprioritized. Patient report given, questions answered & plan of care reviewed with Misti SMITH.
[2021-11-21 18:30] VITALS: BP 87/57
--- NOTE | 2021-11-21 18:30 | NUR ---
Patient in room ORTHO 4016. I have received report from SARAH Jackson and had the opportunity to ask questions and assume patient care. sitting up in bed no complaints. Addendum: 11/21/21 at 1831 by Hawa Marino RN Amended: Links added.
[2021-11-21 19:00] VITALS: BP 94/50
[2021-11-21 22:36] VITALS: BP 97/56
--- NOTE | 2021-11-22 01:13 | NUR ---
Wound 1 Right breast cellulitis: gently cleanse w/wound wash, rinse w/normal saline and dress with single layer xeroform, place antifungal cream on xeroform before placing on wound, cover with non adherent and medipore tape. BID/PRN STRIKE THRU OR DISPLACEMENT Wound 2 Left breast cellulitis: gently cleanse with wound wash, rinse w/normal saline and dress with single layer xeroform, place antifungal cream on xeroform before placing on wound bed. Cover with ABD pad secure with mesh garmet BID/PRN saturation or displacement Wound 3 ABD cellulitis gently cleanse with normal saline and dress with single layer xeroform, cover with non-adherent and secure with tape. DAILY/PRN strikethrough Wound 4 LEFT BUTTOCK RASH: Cleanse w/NS and pat dry. apply small amount of antifungal cream, cover with small Border foam DAILY/PRN soiling or displacement Addendum: 11/22/21 at 0113 by Hawa Marino RN Amended: Links added.
[2021-11-22] MEDS: HYDROcodone/acetaminophen 10/325mg tab PO PRN ×3 (04:32→20:01)
[2021-11-22] MEDS: LORazepam 0.5 MG tablet PO PRN (04:33)
[2021-11-22] MEDS: clotrimazole topical cream 15gm tube TP SCH ×3 (05:00→19:44)
[2021-11-22 06:00] VITALS: BP 117/79
--- NOTE | 2021-11-22 06:20 | NUR ---
Problems reprioritized. Patient report given, questions answered & plan of care reviewed with SARAH STRAUSS. Addendum: 11/22/21 at 0620 by Hawa Marino RN Amended: Links added.
[2021-11-22 06:27] LABS: BASOPHILS # (AUTO) 0.1 X10'3 (0-0.2); BASOPHILS % (AUTO) 1.4 % (0-1); EOSINOPHILS # (AUTO) 0.2 X10'3 (0-0.9); EOSINOPHILS % (AUTO) 2.7 % (0-6); HEMATOCRIT 41.6 % (35.0-45.0); HEMOGLOBIN 13.6 g/dl (12.0-16.0); LYMPHOCYTES # (AUTO) 2.8 X10'3 (1.1-4.8); LYMPHOCYTES % (AUTO) 38.9 % (21-51); MEAN CORPUSCULAR HEMOGLOBIN 29.5 PG (27.0-31.0); MEAN CORPUSCULAR HGB CONC 32.7 g/dL (33.0-36.5); MEAN CORPUSCULAR VOLUME 90.2 FL (78-98); MEAN PLATELET VOLUME 8.6 FL (7.4-10.4); MONOCYTES # (AUTO) 0.7 X10'3 (0-0.9); MONOCYTES % (AUTO) 9.9 % (2-12); NEUTROPHILS # (AUTO) 3.4 X10'3 (1.8-7.7); NEUTROPHILS % (AUTO) 47.1 % (42-75); PLATELET COUNT 357 X10'3 (140-440); RED BLOOD COUNT 4.61 X10'6 (4.20-5.60); RED CELL DISTRIBUTION WIDTH 15.1 % (11.5-14.5); WHITE BLOOD COUNT 7.1 X10'3 (4.5-11.0)
--- NOTE | 2021-11-22 06:35 | NUR ---
Patient in room ORTHO 4016. I have received report from Misti SMITH and had the opportunity to ask questions and assume patient care.
[2021-11-22 06:55] LABS: ALBUMIN 2.3 G/DL (3.4-5.0); ANION GAP 7 (8-16); BLOOD UREA NITROGEN 14 MG/DL (7-18); BUN/CREATININE RATIO 16.1 (6.6-38.0); CALCIUM 8.6 MG/DL (8.5-10.1); CHLORIDE 105 MMOL/L (99-107); CREATININE 0.87 MG/DL (0.40-0.90); GLUCOSE 95 MG/DL (70-104); MAGNESIUM 1.8 MG/DL (1.5-2.4); POTASSIUM 4.2 MMOL/L (3.5-5.1); SODIUM 141 MMOL/L (135-145); TOTAL CARBON DIOXIDE 28.7 MMOL/L (24-32); eGFR 68 ML/MIN
[2021-11-22] MEDS: docusate sod 100mg capsule PO SCH ×2 (07:51→19:56)
[2021-11-22] MEDS: enoxaparin 40mg/0.4ml syringe SUBCUT SCH (07:52)
[2021-11-22] MEDS: K and/or MAG REPLACEMENT MC SCH ×3 (08:00→20:00)
[2021-11-22 10:00] VITALS: BP 92/63
[2021-11-22 18:00] VITALS: BP 98/65
--- NOTE | 2021-11-22 18:15 | NUR ---
Problems reprioritized. Patient report given, questions answered & plan of care reviewed with Tere SMITH.
--- NOTE | 2021-11-22 18:30 | NUR ---
Patient in room ORTHO 4016. I have received report from CARLOS A SMITH and had the opportunity to ask questions and assume patient care.
[2021-11-22] MEDS: psyllium seed 3.4 gm packet PO SCH (19:56)
[2021-11-22 22:00] VITALS: BP 107/64
[2021-11-23] MEDS: LORazepam 0.5 MG tablet PO PRN (01:47)
[2021-11-23] MEDS: HYDROcodone/acetaminophen 10/325mg tab PO PRN ×3 (01:47→19:31)
[2021-11-23 06:00] VITALS: BP 89/60
[2021-11-23 06:30] LABS: BASOPHILS # (AUTO) 0.1 X10'3 (0-0.2); BASOPHILS % (AUTO) 1.8 % (0-1); EOSINOPHILS # (AUTO) 0.2 X10'3 (0-0.9); EOSINOPHILS % (AUTO) 2.3 % (0-6); HEMATOCRIT 40.4 % (35.0-45.0); HEMOGLOBIN 13.7 g/dl (12.0-16.0); LYMPHOCYTES # (AUTO) 2.8 X10'3 (1.1-4.8); LYMPHOCYTES % (AUTO) 38.5 % (21-51); MEAN CORPUSCULAR HEMOGLOBIN 30.3 PG (27.0-31.0); MEAN CORPUSCULAR HGB CONC 33.8 g/dL (33.0-36.5); MEAN CORPUSCULAR VOLUME 89.6 FL (78-98); MEAN PLATELET VOLUME 8.4 FL (7.4-10.4); MONOCYTES # (AUTO) 0.7 X10'3 (0-0.9); MONOCYTES % (AUTO) 9.5 % (2-12); NEUTROPHILS # (AUTO) 3.4 X10'3 (1.8-7.7); NEUTROPHILS % (AUTO) 47.9 % (42-75); PLATELET COUNT 348 X10'3 (140-440); RED BLOOD COUNT 4.51 X10'6 (4.20-5.60); WHITE BLOOD COUNT 7.2 X10'3 (4.5-11.0)
--- NOTE | 2021-11-23 06:30 | NUR ---
Problems reprioritized. Patient report given, questions answered & plan of care reviewed with ELVA SMITH.
[2021-11-23 06:40] LABS: ALBUMIN 2.3 G/DL (3.4-5.0); ANION GAP 5 (8-16); BLOOD UREA NITROGEN 13 MG/DL (7-18); BUN/CREATININE RATIO 18.6 (6.6-38.0); CALCIUM 8.6 MG/DL (8.5-10.1); CHLORIDE 108 MMOL/L (99-107); GLUCOSE 95 MG/DL (70-104); MAGNESIUM 1.5 MG/DL (1.5-2.4); POTASSIUM 4.4 MMOL/L (3.5-5.1); SODIUM 141 MMOL/L (135-145); TOTAL CARBON DIOXIDE 28.1 MMOL/L (24-32); eGFR 88 ML/MIN
[2021-11-23] MEDS: K and/or MAG REPLACEMENT MC SCH ×2 (08:00→19:31)
[2021-11-23] MEDS: docusate sod 100mg capsule PO SCH ×2 (08:01→19:30)
[2021-11-23] MEDS: enoxaparin 40mg/0.4ml syringe SUBCUT SCH (08:02)
[2021-11-23 10:00] VITALS: BP 98/59
[2021-11-23] MEDS: magnesium hydroxide 30ml (MOM) UD suspension PO PRN (16:13)
[2021-11-23 18:00] VITALS: BP 92/61
--- NOTE | 2021-11-23 18:00 | NUR ---
Report to Erika SMITH
--- NOTE | 2021-11-23 18:44 | NUR ---
Patient in room ORTHO 4016. I have received report from Alix SMITH and had the opportunity to ask questions and assume patient care.
[2021-11-23] MEDS: amLODIPine 5mg tablet PO SCH (19:31)
[2021-11-23] MEDS: psyllium seed 3.4 gm packet PO SCH (19:32)
--- NOTE | 2021-11-23 20:59 | NUR ---
Per patient wounds had dressing changed twice today and patient states they don't need to be done again, will assess for any drainage throughout shift to see if dressings need to be changed.
[2021-11-23 22:00] VITALS: BP 108/62
[2021-11-24 06:00] VITALS: BP 100/56
[2021-11-24] MEDS: amLODIPine 5mg tablet PO SCH (06:33)
--- NOTE | 2021-11-24 06:35 | NUR ---
Problems reprioritized. Patient report given, questions answered & plan of care reviewed with Renetta SMITH.
[2021-11-24 07:44] LABS: BASOPHILS # (AUTO) 0.1 X10'3 (0-0.2); BASOPHILS % (AUTO) 1.7 % (0-1); EOSINOPHILS # (AUTO) 0.2 X10'3 (0-0.9); EOSINOPHILS % (AUTO) 2.6 % (0-6); HEMATOCRIT 44.4 % (35.0-45.0); HEMOGLOBIN 14.6 g/dl (12.0-16.0); LYMPHOCYTES # (AUTO) 2.5 X10'3 (1.1-4.8); LYMPHOCYTES % (AUTO) 43.6 % (21-51); MEAN CORPUSCULAR HEMOGLOBIN 29.7 PG (27.0-31.0); MEAN CORPUSCULAR HGB CONC 32.9 g/dL (33.0-36.5); MEAN CORPUSCULAR VOLUME 90.2 FL (78-98); MEAN PLATELET VOLUME 8.6 FL (7.4-10.4); MONOCYTES # (AUTO) 0.5 X10'3 (0-0.9); MONOCYTES % (AUTO) 9.5 % (2-12); NEUTROPHILS # (AUTO) 2.5 X10'3 (1.8-7.7); NEUTROPHILS % (AUTO) 42.6 % (42-75); PLATELET COUNT 358 X10'3 (140-440); RED BLOOD COUNT 4.92 X10'6 (4.20-5.60); RED CELL DISTRIBUTION WIDTH 16.1 % (11.5-14.5); WHITE BLOOD COUNT 5.8 X10'3 (4.5-11.0)
[2021-11-24 07:56] LABS: ALBUMIN 2.5 G/DL (3.4-5.0); ANION GAP 2 (8-16); BLOOD UREA NITROGEN 12 MG/DL (7-18); CALCIUM 8.7 MG/DL (8.5-10.1); CHLORIDE 106 MMOL/L (99-107); CREATININE 0.75 MG/DL (0.40-0.90); GLUCOSE 91 MG/DL (70-104); POTASSIUM 4.5 MMOL/L (3.5-5.1); SODIUM 140 MMOL/L (135-145); TOTAL CARBON DIOXIDE 32.1 MMOL/L (24-32); eGFR 81 ML/MIN
[2021-11-24] MEDS: K and/or MAG REPLACEMENT MC SCH ×2 (08:00→19:44)
[2021-11-24] MEDS: docusate sod 100mg capsule PO SCH ×2 (08:34→19:50)
[2021-11-24] MEDS: HYDROcodone/acetaminophen 10/325mg tab PO PRN ×3 (08:35→19:50)
[2021-11-24] MEDS: enoxaparin 40mg/0.4ml syringe SUBCUT SCH (08:36)
[2021-11-24 10:00] VITALS: BP 98/51
[2021-11-24 14:00] VITALS: BP 101/55
[2021-11-24 15:25] VITALS: BP 101/55
[2021-11-24 18:00] VITALS: BP 113/62
--- NOTE | 2021-11-24 18:32 | NUR ---
Problems reprioritized. Patient report given, questions answered & plan of care reviewed with Erika SMITH.
[2021-11-24] MEDS: psyllium seed 3.4 gm packet PO SCH (21:36)
[2021-11-24 22:00] VITALS: BP 104/67
[2021-11-25 05:00] VITALS: BP 120/64
--- NOTE | 2021-11-25 06:15 | NUR ---
Patient in room ORTHO 4016. I have received report from SARAH James and had the opportunity to ask questions and assume patient care.
--- NOTE | 2021-11-25 06:26 | NUR ---
Problems reprioritized. Patient report given, questions answered & plan of care reviewed with Dana SMITH.
[2021-11-25 07:26] LABS: BASOPHILS # (AUTO) 0.1 X10'3 (0-0.2); BASOPHILS % (AUTO) 1.8 % (0-1); EOSINOPHILS # (AUTO) 0.2 X10'3 (0-0.9); EOSINOPHILS % (AUTO) 3.4 % (0-6); HEMATOCRIT 42.1 % (35.0-45.0); HEMOGLOBIN 13.9 g/dl (12.0-16.0); LYMPHOCYTES # (AUTO) 2.7 X10'3 (1.1-4.8); LYMPHOCYTES % (AUTO) 53.5 % (21-51); MEAN CORPUSCULAR HEMOGLOBIN 29.9 PG (27.0-31.0); MEAN CORPUSCULAR HGB CONC 32.9 g/dL (33.0-36.5); MEAN CORPUSCULAR VOLUME 90.8 FL (78-98); MEAN PLATELET VOLUME 8.8 FL (7.4-10.4); MONOCYTES # (AUTO) 0.5 X10'3 (0-0.9); MONOCYTES % (AUTO) 10.4 % (2-12); NEUTROPHILS # (AUTO) 1.6 X10'3 (1.8-7.7); NEUTROPHILS % (AUTO) 30.9 % (42-75); PLATELET COUNT 339 X10'3 (140-440); RED BLOOD COUNT 4.63 X10'6 (4.20-5.60); RED CELL DISTRIBUTION WIDTH 16.3 % (11.5-14.5); WHITE BLOOD COUNT 5.1 X10'3 (4.5-11.0)
[2021-11-25] MEDS: enoxaparin 40mg/0.4ml syringe SUBCUT SCH (07:42)
[2021-11-25] MEDS: docusate sod 100mg capsule PO SCH ×2 (07:42→19:42)
[2021-11-25 07:43] LABS: ALBUMIN 2.4 G/DL (3.4-5.0); ANION GAP 4 (8-16); BLOOD UREA NITROGEN 13 MG/DL (7-18); BUN/CREATININE RATIO 16.7 (6.6-38.0); CALCIUM 8.4 MG/DL (8.5-10.1); CHLORIDE 108 MMOL/L (99-107); CREATININE 0.78 MG/DL (0.40-0.90); GLUCOSE 94 MG/DL (70-104); POTASSIUM 4.8 MMOL/L (3.5-5.1); SODIUM 142 MMOL/L (135-145); TOTAL CARBON DIOXIDE 29.9 MMOL/L (24-32); eGFR 77 ML/MIN
[2021-11-25] MEDS: HYDROcodone/acetaminophen 10/325mg tab PO PRN ×3 (07:43→18:52)
[2021-11-25] MEDS: K and/or MAG REPLACEMENT MC SCH ×2 (07:47→20:00)
[2021-11-25 08:07] LABS: ANISOCYTOSIS 1+; PLATELET ESTIMATE NORMAL
[2021-11-25 08:08] LABS: POIKILOCYTOSIS FEW
--- NOTE | 2021-11-25 08:27 | NUR ---
Problems reprioritized. Patient report given, questions answered & plan of care reviewed with SARAH Coleman.
[2021-11-25 10:00] VITALS: BP 114/70
--- NOTE | 2021-11-25 12:13 | NUR ---
[facility] note. Call from primary nurse to meet for dressing change. Dr Sepulveda in room. Wounds noted to continue to be hypergranulated. Wound modality discussed w/ MD and changed to non border/adhesive foam to be changed daily and prn soiling/ displacement. Pt verbalized understanding and to also refrain from excessive tape use. Addendum: 11/25/21 at 1218 by Georgina Sinha RN Amended: Links added.
[2021-11-25 14:00] VITALS: BP 112/67
[2021-11-25 18:00] VITALS: BP 95/62
--- NOTE | 2021-11-25 18:42 | NUR ---
Problems reprioritized. Patient report given, questions answered & plan of care reviewed with SARAH James.
[2021-11-25] MEDS: psyllium seed 3.4 gm packet PO SCH (19:42)
[2021-11-25 22:00] VITALS: BP 111/66
[2021-11-26 06:00] VITALS: BP 96/63
--- NOTE | 2021-11-26 06:25 | NUR ---
Problems reprioritized. Patient report given, questions answered & plan of care reviewed with Dana SMITH.
--- NOTE | 2021-11-26 06:31 | NUR ---
Patient in room ORTHO 4016. I have received report from SARAH James and had the opportunity to ask questions and assume patient care.
[2021-11-26] MEDS: K and/or MAG REPLACEMENT MC SCH ×2 (08:00→19:55)
[2021-11-26] MEDS: enoxaparin 40mg/0.4ml syringe SUBCUT SCH (09:53)
[2021-11-26] MEDS: docusate sod 100mg capsule PO SCH ×2 (09:53→19:57)
[2021-11-26] MEDS: HYDROcodone/acetaminophen 10/325mg tab PO PRN ×3 (09:54→20:00)
[2021-11-26 10:00] VITALS: BP 95/62
[2021-11-26] MEDS ORDERED: temazepam 15mg capsule PO PRN (11:50)
[2021-11-26] MEDS ORDERED: acetaminophen 325mg tablet PO PRN (11:50)
[2021-11-26] MEDS: diphenhydrAMINE 25mg capsule PO PRN ×2 (14:09→20:01)
[2021-11-26 15:00] VITALS: BP 100/68
[2021-11-26 17:08] LABS: BASOPHILS # (AUTO) 0.1 X10'3 (0-0.2); BASOPHILS % (AUTO) 1.2 % (0-1); EOSINOPHILS # (AUTO) 0.2 X10'3 (0-0.9); EOSINOPHILS % (AUTO) 2.6 % (0-6); HEMATOCRIT 45.6 % (35.0-45.0); HEMOGLOBIN 15.2 g/dl (12.0-16.0); LYMPHOCYTES # (AUTO) 3.3 X10'3 (1.1-4.8); LYMPHOCYTES % (AUTO) 49.4 % (21-51); MEAN CORPUSCULAR HEMOGLOBIN 30.5 PG (27.0-31.0); MEAN CORPUSCULAR HGB CONC 33.3 g/dL (33.0-36.5); MEAN CORPUSCULAR VOLUME 91.7 FL (78-98); MEAN PLATELET VOLUME 9.4 FL (7.4-10.4); MONOCYTES # (AUTO) 0.5 X10'3 (0-0.9); MONOCYTES % (AUTO) 7.2 % (2-12); NEUTROPHILS # (AUTO) 2.6 X10'3 (1.8-7.7); NEUTROPHILS % (AUTO) 39.6 % (42-75); PLATELET COUNT 381 X10'3 (140-440); RED BLOOD COUNT 4.98 X10'6 (4.20-5.60); RED CELL DISTRIBUTION WIDTH 16.5 % (11.5-14.5); WHITE BLOOD COUNT 6.7 X10'3 (4.5-11.0)
[2021-11-26 17:32] LABS: ALANINE AMINOTRANSFERASE 36 U/L (12-78); ALBUMIN 2.8 G/DL (3.4-5.0); ALBUMIN/GLOBULIN RATIO 0.5 (1.1-1.5); ALKALINE PHOSPHATASE 66 IU/L (46-116); ANION GAP 7 (8-16); ASPARTATE AMINO TRANSFERASE 25 U/L (10-37); BILIRUBIN,TOTAL 0.5 MG/DL (0.1-1.0); BLOOD UREA NITROGEN 15 MG/DL (7-18); BUN/CREATININE RATIO 17.9 (6.6-38.0); CALCIUM 8.9 MG/DL (8.5-10.1); CHLORIDE 104 MMOL/L (99-107); CREATININE 0.84 MG/DL (0.40-0.90); GLUCOSE 91 MG/DL (70-104); POTASSIUM 4.9 MMOL/L (3.5-5.1); SODIUM 142 MMOL/L (135-145); TOTAL CARBON DIOXIDE 30.8 MMOL/L (24-32); eGFR 71 ML/MIN
[2021-11-26 18:00] VITALS: BP 97/51
--- NOTE | 2021-11-26 18:47 | NUR ---
Problems reprioritized. Patient report given, questions answered & plan of care reviewed with SARAH Carranza.
--- NOTE | 2021-11-26 18:50 | NUR ---
Patient in room ORTHO 4016. I have received report from NICKY SMITH and had the opportunity to ask questions and assume patient care.
[2021-11-26] MEDS: psyllium seed 3.4 gm packet PO SCH (19:57)
[2021-11-26 22:00] VITALS: BP 93/57
[2021-11-27 06:00] VITALS: BP 96/54
--- NOTE | 2021-11-27 06:30 | NUR ---
Problems reprioritized. Patient report given, questions answered & plan of care reviewed with MELISSA SMITH.
--- NOTE | 2021-11-27 07:12 | NUR ---
Patient in room ORTHO 4016. I have received report from VANDANA ROSS RN and had the opportunity to ask questions and assume patient care.
[2021-11-27] MEDS: K and/or MAG REPLACEMENT MC SCH ×2 (08:00→19:17)
[2021-11-27] MEDS: enoxaparin 40mg/0.4ml syringe SUBCUT SCH (09:09)
[2021-11-27] MEDS: docusate sod 100mg capsule PO SCH ×2 (09:10→20:00)
[2021-11-27] MEDS: HYDROcodone/acetaminophen 10/325mg tab PO PRN ×3 (09:10→20:30)
[2021-11-27 10:00] VITALS: BP 95/58
[2021-11-27] MEDS: LORazepam 0.5 MG tablet PO PRN (16:19)
[2021-11-27 17:00] VITALS: BP 95/60
--- NOTE | 2021-11-27 18:45 | NUR ---
Patient in room ORTHO 4016A. I have received report from SARAH Jacobsen and had the opportunity to ask questions and assume patient care.
--- NOTE | 2021-11-27 19:25 | NUR ---
Problems reprioritized. Patient report given, questions answered & plan of care reviewed with SARAH LEMONS.
[2021-11-27] MEDS: psyllium seed 3.4 gm packet PO SCH (20:29)
[2021-11-27] MEDS: diphenhydrAMINE 25mg capsule PO PRN (20:33)
[2021-11-27 22:00] VITALS: BP 87/65
[2021-11-27 22:30] VITALS: BP 98/61
[2021-11-28 05:56] LABS: BASOPHILS # (AUTO) 0.1 X10'3 (0-0.2); BASOPHILS % (AUTO) 1.3 % (0-1); EOSINOPHILS # (AUTO) 0.2 X10'3 (0-0.9); EOSINOPHILS % (AUTO) 4.1 % (0-6); HEMATOCRIT 42.7 % (35.0-45.0); HEMOGLOBIN 14.3 g/dl (12.0-16.0); LYMPHOCYTES # (AUTO) 2.8 X10'3 (1.1-4.8); LYMPHOCYTES % (AUTO) 54.6 % (21-51); MEAN CORPUSCULAR HEMOGLOBIN 30.6 PG (27.0-31.0); MEAN CORPUSCULAR HGB CONC 33.5 g/dL (33.0-36.5); MEAN CORPUSCULAR VOLUME 91.4 FL (78-98); MEAN PLATELET VOLUME 8.3 FL (7.4-10.4); MONOCYTES # (AUTO) 0.5 X10'3 (0-0.9); MONOCYTES % (AUTO) 10.5 % (2-12); NEUTROPHILS # (AUTO) 1.5 X10'3 (1.8-7.7); NEUTROPHILS % (AUTO) 29.5 % (42-75); PLATELET COUNT 301 X10'3 (140-440); RED BLOOD COUNT 4.67 X10'6 (4.20-5.60); RED CELL DISTRIBUTION WIDTH 15.9 % (11.5-14.5); WHITE BLOOD COUNT 5.2 X10'3 (4.5-11.0)
[2021-11-28 06:00] VITALS: BP 107/66
--- NOTE | 2021-11-28 06:10 | NUR ---
Problems reprioritized. Patient report given, questions answered & plan of care reviewed with SARAH Jacobsen.
[2021-11-28 06:23] LABS: ALANINE AMINOTRANSFERASE 28 U/L (12-78); ALBUMIN 2.5 G/DL (3.4-5.0); ALBUMIN/GLOBULIN RATIO 0.6 (1.1-1.5); ALKALINE PHOSPHATASE 58 IU/L (46-116); ANION GAP -1 (8-16); ASPARTATE AMINO TRANSFERASE 18 U/L (10-37); BILIRUBIN,TOTAL 0.6 MG/DL (0.1-1.0); BLOOD UREA NITROGEN 12 MG/DL (7-18); BUN/CREATININE RATIO 13.6 (6.6-38.0); CALCIUM 8.6 MG/DL (8.5-10.1); CHLORIDE 106 MMOL/L (99-107); CREATININE 0.88 MG/DL (0.40-0.90); GLUCOSE 92 MG/DL (70-104); POTASSIUM 4.8 MMOL/L (3.5-5.1); SODIUM 137 MMOL/L (135-145); TOTAL CARBON DIOXIDE 31.5 MMOL/L (24-32); eGFR 67 ML/MIN
--- NOTE | 2021-11-28 06:43 | NUR ---
Patient in room ORTHO 4016. I have received report from SAARH LEMONS and had the opportunity to ask questions and assume patient care.
[2021-11-28] MEDS: K and/or MAG REPLACEMENT MC SCH ×2 (08:00→20:00)
[2021-11-28] MEDS: enoxaparin 40mg/0.4ml syringe SUBCUT SCH (08:58)
[2021-11-28] MEDS: docusate sod 100mg capsule PO SCH ×2 (08:58→20:27)
[2021-11-28] MEDS: HYDROcodone/acetaminophen 10/325mg tab PO PRN ×3 (09:01→20:27)
[2021-11-28 10:00] VITALS: BP 91/57
[2021-11-28 14:00] VITALS: BP 97/61
[2021-11-28 18:00] VITALS: BP 116/57
--- NOTE | 2021-11-28 19:07 | NUR ---
Problems reprioritized. Patient report given, questions answered & plan of care reviewed with VANDANA ROSS RN.
--- NOTE | 2021-11-28 19:08 | NUR ---
Patient in room ORTHO 4016. I have received report from MELISSA SMITH and had the opportunity to ask questions and assume patient care.
[2021-11-28] MEDS: psyllium seed 3.4 gm packet PO SCH (20:27)
[2021-11-28] MEDS: diphenhydrAMINE 25mg capsule PO PRN (20:27)
[2021-11-28 22:00] VITALS: BP 84/52
[2021-11-29 06:00] VITALS: BP 100/68
--- NOTE | 2021-11-29 06:30 | NUR ---
Patient in room ORTHO 4016. I have received report from SARAH Carranza and had the opportunity to ask questions and assume patient care.
--- NOTE | 2021-11-29 06:30 | NUR ---
Problems reprioritized. Patient report given, questions answered & plan of care reviewed with ELLYN SMITH.
[2021-11-29 06:38] LABS: BASOPHILS # (AUTO) 0.1 X10'3 (0-0.2); BASOPHILS % (AUTO) 1.1 % (0-1); EOSINOPHILS # (AUTO) 0.3 X10'3 (0-0.9); HEMATOCRIT 42.7 % (35.0-45.0); HEMOGLOBIN 14.1 g/dl (12.0-16.0); LYMPHOCYTES # (AUTO) 2.9 X10'3 (1.1-4.8); LYMPHOCYTES % (AUTO) 50.4 % (21-51); MEAN CORPUSCULAR HGB CONC 33.1 g/dL (33.0-36.5); MEAN CORPUSCULAR VOLUME 90.6 FL (78-98); MEAN PLATELET VOLUME 8.7 FL (7.4-10.4); MONOCYTES # (AUTO) 0.6 X10'3 (0-0.9); MONOCYTES % (AUTO) 10.9 % (2-12); NEUTROPHILS # (AUTO) 1.9 X10'3 (1.8-7.7); NEUTROPHILS % (AUTO) 32.6 % (42-75); PLATELET COUNT 297 X10'3 (140-440); RED BLOOD COUNT 4.71 X10'6 (4.20-5.60); RED CELL DISTRIBUTION WIDTH 16.1 % (11.5-14.5); WHITE BLOOD COUNT 5.8 X10'3 (4.5-11.0)
[2021-11-29 06:40] LABS: ALANINE AMINOTRANSFERASE 29 U/L (12-78); ALBUMIN 2.5 G/DL (3.4-5.0); ALBUMIN/GLOBULIN RATIO 0.6 (1.1-1.5); ALKALINE PHOSPHATASE 57 IU/L (46-116); ANION GAP 1 (8-16); ASPARTATE AMINO TRANSFERASE 17 U/L (10-37); BILIRUBIN,TOTAL 0.5 MG/DL (0.1-1.0); BLOOD UREA NITROGEN 15 MG/DL (7-18); BUN/CREATININE RATIO 16.5 (6.6-38.0); CALCIUM 8.6 MG/DL (8.5-10.1); CHLORIDE 107 MMOL/L (99-107); CREATININE 0.91 MG/DL (0.40-0.90); GLUCOSE 89 MG/DL (70-104); POTASSIUM 4.9 MMOL/L (3.5-5.1); SODIUM 141 MMOL/L (135-145); TOTAL CARBON DIOXIDE 32.8 MMOL/L (24-32); eGFR 65 ML/MIN
--- NOTE | 2021-11-29 07:14 | NUR ---
I have received report from Patient in room ORTHO 4016. I have received report from SARAH Carranza and had the opportunity to ask questions and assume patient care, and had the opportunity to ask questions and assume patient care.
[2021-11-29] MEDS: K and/or MAG REPLACEMENT MC SCH ×2 (08:00→20:00)
[2021-11-29 10:00] VITALS: BP 104/67
--- NOTE | 2021-11-29 10:47 | NUR ---
Reassessment: Pt PO mostly ~100% avg regular diet meeting estimated needs. LBM 11/28 receiving routine colace. No nutrition intervention at this time. Will continue to monitor. Recommendations: 1) Continue regular diet 2) Routine bowel care 3) Scaled weight this admit; subsequent weekly scaled weights Addendum: 11/29/21 at [address] Amended: Links added.
[2021-11-29] MEDS: docusate sod 100mg capsule PO SCH ×2 (10:57→20:00)
[2021-11-29] MEDS: enoxaparin 40mg/0.4ml syringe SUBCUT SCH (10:57)
[2021-11-29] MEDS: HYDROcodone/acetaminophen 10/325mg tab PO PRN ×3 (11:00→20:45)
[2021-11-29 18:00] VITALS: BP 112/73
--- NOTE | 2021-11-29 18:30 | NUR ---
Patient report given to Luther,with questions answered & plan of care reviewed.
--- NOTE | 2021-11-29 19:01 | NUR ---
Patient in room ORTHO 4016. I have received report from SARAH Ramirez and had the opportunity to ask questions and assume patient care.
[2021-11-29] MEDS: diphenhydrAMINE 25mg capsule PO PRN (20:45)
[2021-11-29] MEDS: psyllium seed 3.4 gm packet PO SCH (20:46)
[2021-11-29 22:00] VITALS: BP 98/60
--- NOTE | 2021-11-30 06:19 | NUR ---
Problems reprioritized. Patient report given, questions answered & plan of care reviewed with SARAH Hughes.
[2021-11-30 06:30] VITALS: BP 91/63
[2021-11-30 07:09] LABS: BASOPHILS % (AUTO) 0.7 % (0-1); EOSINOPHILS # (AUTO) 0.3 X10'3 (0-0.9); EOSINOPHILS % (AUTO) 4.9 % (0-6); HEMATOCRIT 45.4 % (35.0-45.0); HEMOGLOBIN 15.1 g/dl (12.0-16.0); LYMPHOCYTES # (AUTO) 2.6 X10'3 (1.1-4.8); LYMPHOCYTES % (AUTO) 50.3 % (21-51); MEAN CORPUSCULAR HEMOGLOBIN 30.1 PG (27.0-31.0); MEAN CORPUSCULAR HGB CONC 33.2 g/dL (33.0-36.5); MEAN CORPUSCULAR VOLUME 90.8 FL (78-98); MEAN PLATELET VOLUME 8.8 FL (7.4-10.4); MONOCYTES # (AUTO) 0.5 X10'3 (0-0.9); MONOCYTES % (AUTO) 9.6 % (2-12); NEUTROPHILS # (AUTO) 1.8 X10'3 (1.8-7.7); NEUTROPHILS % (AUTO) 34.5 % (42-75); PLATELET COUNT 298 X10'3 (140-440); RED CELL DISTRIBUTION WIDTH 16.3 % (11.5-14.5); WHITE BLOOD COUNT 5.3 X10'3 (4.5-11.0)
[2021-11-30 07:31] LABS: ALANINE AMINOTRANSFERASE 31 U/L (12-78); ALBUMIN 2.7 G/DL (3.4-5.0); ALBUMIN/GLOBULIN RATIO 0.6 (1.1-1.5); ALKALINE PHOSPHATASE 62 IU/L (46-116); ANION GAP 5 (8-16); ASPARTATE AMINO TRANSFERASE 19 U/L (10-37); BILIRUBIN,TOTAL 0.5 MG/DL (0.1-1.0); BLOOD UREA NITROGEN 11 MG/DL (7-18); BUN/CREATININE RATIO 13.8 (6.6-38.0); CALCIUM 8.7 MG/DL (8.5-10.1); CHLORIDE 107 MMOL/L (99-107); GLUCOSE 86 MG/DL (70-104); SODIUM 143 MMOL/L (135-145); TOTAL CARBON DIOXIDE 30.9 MMOL/L (24-32); TOTAL PROTEIN 7.5 G/DL (6.4-8.2); eGFR 75 ML/MIN
[2021-11-30] MEDS: K and/or MAG REPLACEMENT MC SCH (08:00)
[2021-11-30] MEDS: enoxaparin 40mg/0.4ml syringe SUBCUT SCH (08:39)
[2021-11-30] MEDS: docusate sod 100mg capsule PO SCH (08:39)
[2021-11-30] MEDS: HYDROcodone/acetaminophen 10/325mg tab PO PRN (08:39)
[2021-11-30] MEDS ORDERED: IBUP-1986 PO (09:36)
[2021-11-30] MEDS ORDERED: ACET-1008 PO (09:36)
[2021-11-30 10:51] VITALS: BP 114/65
--- NOTE | 2021-11-30 11:15 | NUR ---
Patient stable and appropriate for discharge to medical respite via taxi cab. [facility] RX [facility]. Wound care supplies given to patient. otr tanker truck driver will transport patient to [facility] and then to her new placement. All belongings taken from room. All discharge instructions and education given and reviewed with patient. all questions answered.
== END 2021-11-30 11:20 | disposition home health service (06) | DRG 720 ==
LOC: ER 15:15 → ED HOLD 17:50 → UNDOADMIN 18:25 → ED HOLD 23:25 → ORTHO 4S 23:25
PROVIDERS: ADMIT Internal Medicine; ATTEND Internal Medicine
DX: A41.9 Sepsis, unspecified organism (principal); E43 Unspecified severe protein-calorie malnutrition; L03.311 Cellulitis of abdominal wall; I80.8 Phlebitis and thrombophlebitis of other sites; F15.10 Other stimulant abuse, uncomplicated; F17.210 Nicotine dependence, cigarettes, uncomplicated; L88 Pyoderma gangrenosum; B95.8 Unspecified staphylococcus as the cause of diseases classified elsewhere; E66.01 Morbid (severe) obesity due to excess calories; Z68.27 Body mass index [BMI] 27.0-27.9, adult; Z59.00 Homelessness unspecified; Z56.0 Unemployment, unspecified; Z88.0 Allergy status to penicillin; Z79.899 Other long term (current) drug therapy
CPT/HCPCS: 36410; 36415; 80048; 80053; 80202; 80305; 81003; 83605; 83735; 84132; 84145; 85007; 85008; 85025; 87040; 87081; 90732; 93971; 96365; 96366; 96368; 96375; 99285; C1751; G0378; J1650; J2270; J2405; J3370; J3480; J3490; J7030; J7050; Q0163

== ENCOUNTER 2022-01-25 16:19 | Emergency (ER) | payer MEDICAID ==
[~2022-01-25] VITALS: Ht 170.2 cm; Wt 90.0 kg
[~2022-01-25 16:19] MED LIST: ALBU17AE26 IH; IBUP-1986 PO
[2022-01-25 16:32] VITALS: BP 128/80
[2022-01-25 18:46] LABS: ALANINE AMINOTRANSFERASE 37 U/L (12-78); ALBUMIN 3.6 G/DL (3.4-5.0); ALBUMIN/GLOBULIN RATIO 0.8 (1.1-1.5); ALKALINE PHOSPHATASE 79 IU/L (46-116); ANION GAP 7 (8-16); ASPARTATE AMINO TRANSFERASE 23 U/L (10-37); BILIRUBIN,TOTAL 0.5 MG/DL (0.1-1.0); BLOOD UREA NITROGEN 20 MG/DL (7-18); BUN/CREATININE RATIO 23.8 (6.6-38.0); CHLORIDE 106 MMOL/L (99-107); CREATININE 0.84 MG/DL (0.40-0.90); GLUCOSE 87 MG/DL (70-104); MAGNESIUM 2.2 MG/DL (1.5-2.4); POTASSIUM 4.7 MMOL/L (3.5-5.1); SODIUM 141 MMOL/L (135-145); TOTAL CARBON DIOXIDE 28.3 MMOL/L (24-32); TOTAL PROTEIN 8.3 G/DL (6.4-8.2); eGFR 71 ML/MIN
[2022-01-25 18:48] LABS: BASOPHILS # (AUTO) 0.1 X10'3 (0-0.2); BASOPHILS % (AUTO) 0.9 % (0-1); EOSINOPHILS # (AUTO) 0.3 X10'3 (0-0.9); EOSINOPHILS % (AUTO) 2.9 % (0-6); HEMATOCRIT 46.1 % (35.0-45.0); HEMOGLOBIN 15.8 g/dl (12.0-16.0); LYMPHOCYTES # (AUTO) 3.6 X10'3 (1.1-4.8); LYMPHOCYTES % (AUTO) 34.1 % (21-51); MEAN CORPUSCULAR HEMOGLOBIN 30.3 PG (27.0-31.0); MEAN CORPUSCULAR HGB CONC 34.1 g/dL (33.0-36.5); MEAN CORPUSCULAR VOLUME 88.8 FL (78-98); MEAN PLATELET VOLUME 9.6 FL (7.4-10.4); MONOCYTES # (AUTO) 0.6 X10'3 (0-0.9); MONOCYTES % (AUTO) 5.8 % (2-12); NEUTROPHILS # (AUTO) 5.9 X10'3 (1.8-7.7); NEUTROPHILS % (AUTO) 56.3 % (42-75); PLATELET COUNT 291 X10'3 (140-440); RED BLOOD COUNT 5.19 X10'6 (4.20-5.60); RED CELL DISTRIBUTION WIDTH 14.4 % (11.5-14.5); WHITE BLOOD COUNT 10.4 X10'3 (4.5-11.0)
[2022-01-25] MEDS ORDERED: CIPR750T14 PO (20:59)
[2022-01-25] MEDS ORDERED: DOXY-1 PO (20:59)
== END 2022-01-25 21:08 | disposition home or self-care (01) ==
LOC: ER 16:21
DX: L08.9 Local infection of the skin and subcutaneous tissue, unspecified (principal); F15.20 Other stimulant dependence, uncomplicated; Z88.0 Allergy status to penicillin; Z59.00 Homelessness unspecified; Z56.0 Unemployment, unspecified
CPT/HCPCS: 36415; 71045; 80053; 83735; 84145; 85025; 87040; 93005; 99285